=== PATIENT | female | born 1995 | race Caucasian/White ===

== ENCOUNTER 2019-06-26 23:02 | Emergency (ER) | payer BC ==
[2019-06-26] MEDS ORDERED: IBUPROFEN 600 MG TAB PO STA (23:40)
--- NOTE | 2019-06-26 23:55 | ED ---
General Adult HPI - General Chief complaint: Extremity Injury, Lower Stated complaint: Horse stepped on R Foot Time Seen by Provider: 06/26/19 23:37 Source: patient, RN notes reviewed Mode of arrival: ambulatory Limitations: no limitations - History of Present Illness Initial comments: 23-year-old female presents to the emergency department for a chief complaint of right foot pain. Patient states that her 8-week-old horse stepped on her right forefoot. States that she has pain in the front the foot. States that she can walk on her foot but only using her heel. States that it did start bruising as well. Denies any other injuries.Patient has no other complaints at this time including shortness of breath, chest pain, abdominal pain, nausea or vomiting, headache, or visual changes. - Related Data Home Medications Medication Instructions Recorded Confirmed Dextroamphetamine/Amphetamine 06/04/15 06/04/15 [Adderall] Montelukast Chew [Singulair] 06/04/15 06/04/15 Previous Rx's Medication Instructions Recorded SILVER sulfADIAZINE CREAM 1 applic TOPICAL BID #100 gram 06/04/15 [Silvadene Cream] methylPREDNISolone [Medrol] 4 mg PO DIRECTED #1 tab.ds.pk 06/04/15 Allergies Allergy/AdvReac Type Severity Reaction Status Date / Time magnesium sulfate Allergy Rash/Hives Verified 06/26/19 23:25 [From Suprep] potassium sulfate Allergy Rash/Hives Verified 06/26/19 23:25 [From Suprep] sodium sulfate [From Suprep] Allergy Rash/Hives Verified 06/26/19 23:25 Review of Systems ROS Statement: Those systems with pertinent positive or pertinent negative responses have been documented in the HPI. ROS Other: All systems not noted in ROS Statement are negative. Past Medical History Past Medical History: No Reported History History of Any Multi-Drug Resistant Organisms: None Reported Past Surgical History: No Surgical Hx Reported Past Psychological History: No Psychological Hx Reported Smoking Status: Never smoker Past Alcohol Use History: None Reported Past Drug Use History: None Reported General Exam Limitations: no limitations General appearance: alert, in no apparent distress Head exam: Present: atraumatic, normocephalic, normal inspection Eye exam: Present: normal appearance, PERRL, EOMI. Absent: scleral icterus, conjunctival injection, periorbital swelling ENT exam: Present: normal exam, mucous membranes moist Neck exam: Present: normal inspection, full ROM. Absent: tenderness, meningismus, lymphadenopathy Respiratory exam: Present: normal lung sounds bilaterally. Absent: respiratory distress, wheezes, rales, rhonchi, stridor Cardiovascular Exam: Present: regular rate, normal rhythm, normal heart sounds. Absent: systolic murmur, diastolic murmur, rubs, gallop, clicks Extremities exam: Present: full ROM (Full range motion of all digits in the right foot although patient does have pain at times with moving the digits. Full range motion of the right ankle.), tenderness (Tenderness noted to right forefoot over the second and fourth metatarsals.), normal capillary refill (Capillary refill less than 2 seconds, DP pulse 2+ in the right lower extremity.), other (Patient does have some mild ecchymosis noted to the forefoot about 3 cm x 3 cm.). Absent: normal inspection, pedal edema, joint swelling, calf tenderness Course Vital Signs 06/26/19 23:20 Pulse Rate 79 Respiratory 18 Rate Blood Pressure 120/80 O2 Sat by Pulse 96 Oximetry Procedures - Orthopedic Splinting/Casting Injury #1 Side: right Lower Extremity Injury Location: short leg Lower Extremity Immobilizer: posterior splint Medical Decision Making - Medical Decision Making 23-year-old female presents to the emergency department for right foot pain. Patient's were stepped on this. On exam she has some mild contusion noted over the second third and fourth dorsal metatarsals. Compartments are soft. She unable to bear weight on the forefoot. X-rays are negative for acute fracture. However given the patient cannot bear weight she was splinted in a posterior short leg splint. Neurovascular status intact after splint applied. She will follow up with orthopedics. She already has crutches at bedside. She'll return if she has any worsening symptoms. Disposition Clinical Impression: Contusion of foot Disposition: HOME SELF-CARE Condition: Good Instructions (If sedation given, give patient instructions): Foot Contusion (ED) Additional Instructions: Please take Motrin and Tylenol for pain. Please keep splint dry. Follow-up with orthopedics in one to 2 days. Return to the emergency department if you have any worsening symptoms. Is patient prescribed a controlled substance at d/c from ED?: No Referrals: Jennifer Putnam MD [Primary Care Provider] - 1-2 days Makim,Vikas, MD [STAFF PHYSICIAN] - 1-2 days Time of Disposition: 00:12
--- NOTE | 2019-06-27 00:17 | XR ---
EXAM: XR Right Foot Complete, 3 or More Views CLINICAL HISTORY: Pain TECHNIQUE: Frontal, lateral and oblique views of the right foot. COMPARISON: No relevant prior studies available. FINDINGS: Bones/joints: Unremarkable. No acute fracture. No dislocation. Soft tissues: Unremarkable. No radiopaque foreign body. IMPRESSION: Normal right foot x-rays.
[2019-06-27 00:52] VITALS: BP 116/78; PULSE 76; RESP 16; TEMP 98
== END 2019-06-27 00:40 | disposition home or self-care (01) ==
LOC: EC 23:02
DX: S90.31XA Contusion of right foot, initial encounter (principal); Z79.891 Long term (current) use of opiate analgesic; Z88.8 Allergy status to other drugs, medicaments and biological substances; W55.19XA Other contact with horse, initial encounter; Y92.009 Unspecified place in unspecified non-institutional (private) residence as the place of occurrence of the external cause
CPT/HCPCS: 29515; 99283

== ENCOUNTER 2023-06-15 14:18 | Inpatient (IN) | payer OTHER ==
--- NOTE | 2023-06-15 15:19 | ED ---
Lower Extremity Injury HPI - General Source: patient, RN notes reviewed Mode of arrival: wheelchair Limitations: no limitations <Veronica Campbell - Last Filed: 06/15/23 15:18> <Hayley Dunbar - Last Filed: 06/15/23 18:22> - General Stated Complaint: right leg injury Time Seen by Provider: 06/15/23 15:18 - History of Present Illness Initial Comments: Patient is a 27-year-old female who presents for right leg injury. (Veronica Campbell) Quick note reviewed: This is a pleasant 7-year-old female with no s ignificant past medical history presents the emergency department with a chief complaint of right ankle pain. Patient reports that she was at work when she lost her footing on another coworker's legs. She denies hitting her head, loss of consciousness, anticoagulant use. She cannot take any pain medications prior to arrival. Denies numbness, tingling, weakness to the extremity. Denies pain proximal to ankle (Hayley Dunbar) - Related Data Home Medications Medication Instructions Recorded Confirmed Albuterol Sulfate [Albuterol 1 - 2 puff PO RT-Q6H PRN 06/15/23 06/15/23 Sulfate Hfa] Biotin [Ziuf-Dijc-Novfx] 10,000 mcg PO DAILY 06/15/23 06/15/23 Cetirizine HCl [Zyrtec] 10 mg PO DAILY 06/15/23 06/15/23 Cholecalciferol [Vitamin D3 (125 250 mcg PO DAILY 06/15/23 06/15/23 Mcg = 5000 Iu)] Fluticasone Propion/Salmeterol 1 puff INHALATION RT-BID 06/15/23 06/15/23 [Advair 100-50 Diskus] Lisdexamfetamine Dimesylate 30 mg PO DAILY PRN 06/15/23 06/15/23 [Vyvanse] Magnesium Oxide [Magnesium] 500 mg PO DAILY 06/15/23 06/15/23 Montelukast [Singulair] 10 mg PO DAILY 06/15/23 06/15/23 Fortunato Happy Yahaira-Celis 1 cap PO DAILY 06/15/23 06/15/23 Probiotic/Prebiotic 1 cap PO DAILY 06/15/23 06/15/23 Propranolol [Inderal] 10 mg PO DIRECTED PRN 06/15/23 06/15/23 levonorgestreL [Kyleena (IUD)] 1 implant VAGINAL [id number] 06/15/23 06/15/23 Allergies Allergy/AdvReac Type Severity Reaction Status Date / Time bee venom protein (honey bee) Allergy Swelling Verified 06/15/23 17:30 magnesium sulfate Allergy Rash/Hives Verified 06/15/23 17:30 [From Suprep] potassium sulfate Allergy Rash/Hives Verified 06/15/23 17:30 [From Suprep] sodium sulfate [From Suprep] Allergy Rash/Hives Verified 06/15/23 17:30 soy Allergy Swelling Verified 06/15/23 17:30 Review of Systems ROS Other: All systems not noted in ROS Statement are negative. <Veronica Campbell - Last Filed: 06/15/23 15:18> ROS Other: All systems not noted in ROS Statement are negative. <Hayley Dunbar - Last Filed: 06/15/23 18:22> ROS Statement: Those systems with pertinent positive or pertinent negative responses have been documented in the HPI. Past Medical History Past Medical History: No Reported History Additional Past Medical History / Comment(s): bilateral broken arms History of Any Multi-Drug Resistant Organisms: None Reported Past Surgical History: No Surgical Hx Reported Additional Past Surgical History / Comment(s): wisdom teeth removal Past Psychological History: No Psychological Hx Reported, ADD/ADHD, Anxiety Smoking Status: Never smoker Past Alcohol Use History: Occasional <Veronica Campbell - Last Filed: 06/15/23 15:18> General Exam Limitations: no limitations <Veronica Campbell - Last Filed: 06/15/23 15:18> <Hayley Dunbar - Last Filed: 06/15/23 18:22> - General Exam Comments Initial Comments: Visual Physical Exam Vital signs reviewed General: Well-appearing, nontoxic, no acute distress. Head: Normocephalic, atraumatic Eyes: PERRLA, EOMI ENT: Airway patent Chest: Nonlabored breathing Skin: No visual rash, normal skin tone Neuro: Alert and oriented 3 Musculoskeletal: No gross abnormalities (Veronica Campbell) General: Alert, in no acute distress Head: atraumatic normocephalic. Eyes PERRL, EOMI intact, mucous membranes moist Respiratory: Lungs clear to auscultation bilaterally Cardiovascular: Tachycardic Abdominal: Soft without guarding or rebound Extremities: Normal inspection with full range of motion and normal capillary refill, right ankle with deformity and generalized swelling and marked tenderness to palpation. Limited range of motion secondary to pain 2+ DP/PT pulses. Distal neurovascularly intact Neuroogic: alert and oriented 3, CN II-XII intact, able to ambulate with steady gait Skin: warm dry and intact with normal color (Hayley Dunbar) Course <Hayley Dunbar - Last Filed: 06/15/23 18:22> Vital Signs 06/15/23 06/15/23 06/15/23 15:11 16:20 16:50 Temperature 98.6 F 98.4 F Pulse Rate 103 H 105 H 102 H Respiratory 18 20 18 Rate Blood Pressure 135/90 120/79 118/76 O2 Sat by Pulse 100 100 99 Oximetry 06/15/23 18:12 Temperature 98.8 F Pulse Rate 80 Respiratory 17 Rate Blood Pressure 126/74 O2 Sat by Pulse 100 Oximetry - Reevaluation(s) Reevaluation #1: 06/15/23 16:[address] Gonzalez who agrees and accepts the patient for admission (Hayley Dunbar) Medical Decision Making <Veronica Campbell - Last Filed: 06/15/23 15:18> <Hayley Dunbar - Last Filed: 06/15/23 18:22> - Medical Decision Making I performed the QuickNote portion of this chart - Veronica Campbell PA-C (Veronica Campbell) Was pt. sent in by a medical professional or institution (PAOLA Moreno, MARKETING INTELLIGENCE MANAGER, urgent care, hospital, or alf...) When possible be specific @ -[No] Did you speak to anyone other than the patient for history (EMS, parent, family, police, friend...)? What history was obtained from this source @ -[No] Did you review nursing and triage notes (agree or disagree)? Why? @ -[I reviewed and agree with nursing and triage notes] Were old charts reviewed (outside hosp., previous admission, EMS record, old EKG, old radiological studies, urgent care reports/EKG's, alf records)? Report findings @ -[No old charts were reviewed] Differential Diagnosis (chest pain, altered mental status, abdominal pain women, abdominal pain men, vaginal bleeding, weakness, fever, dyspnea, syncope, headache, dizziness, GI bleed, back pain, seizure, CVA, palpatations, mental health, musculoskeletal)? @ -[not applicable] EKG interpreted by me (3pts min.). @ -[As above] X-rays interpreted by me (1pt min.). @ -Distal tibia and fibula fracture CT interpreted by me (1pt min.). @ -[None done] U/S interpreted by me (1pt. min.). @ -[None done] What testing was considered but not performed or refused? (CT, X-rays, U/S, labs)? Why? @ -[None] What meds were considered but not given or refused? Why? @ -[None] Did you discuss the management of the patient with other professionals (professionals i.e. , PA, MARKETING INTELLIGENCE MANAGER, lab, RT, psych nurse, social work faculty member, security project manager, teacher, security officer, field nurse case manager)? Give summary @ -[Case discussed with Rocio Nuno sap functional analyst who agrees and accepts the patient for admission. Was smoking cessation discussed for >3mins.? @ -[No] Was critical care preformed (if so, how long)? @ -[No] Were there social determinants of health that impacted care today? How? ( Homelessness, low income, unemployed, alcoholism, drug addiction, transportation, low edu. Level, literacy, decrease access to med. care, longterm, rehab)? @ -[No] Was there de-escalation of care discussed even if they declined (Discuss DNR or withdrawal of care, Hospice)? DNR status @ -[No] What co-morbidities impacted this encounter? (DM, HTN, Smoking, COPD, CAD, Cancer, CVA, ARF, Chemo, Hep., AIDS, mental health diagnosis, sleep apnea, morbid obesity)? @ -[None] Was patient admitted / discharged? Hospital course, mention meds given and route, prescriptions, significant lab abnormalities, going to OR and other pertinent info. @ -Admission. This is a pleasant 27-year-old female who presents the emergency department with right ankle pain. Patient had a thorough history and physical exam performed on the ED. Physical exam reveals deformity to right ankle with edema, ecchymosis and marked tenderness to palpation. 2+ DP/PT pulses. Patient remains distally neurovascularly intact. Patient had x-rays performed which revealed acute fractures of the right fibula diaphysis with a butterfly fragment there is mild displacement of the fracture. Spiral fracture of the distal right tibia. Soft tissue swelling throughout the foot. I discussed the results in detail with the patient verbalized understanding all questions were addressed. She is agreeable with the plan for admission. Case is discussed with Dr. Gonzalez who recommends admission with recommend nothing by mouth after midnight and surgery tomorrow. Patient was given morphine, fluids, Dilaudid with mild symptomatically relief in the ED. She'll be placed in posterior mold. He is discussed with Dr. Thibodeaux, [facility] who agrees with plan of care Undiagnosed new problem with uncertain prognosis? @ -[No] Drug Therapy requiring intensive monitoring for toxicity (Heparin, Nitro, Insulin, Cardizem)? @ -[No] Were any procedures done? @ -[No] Diagnosis/symptom? @ -Distal Tibia Fracture Distal Fibula Fracture Acute, or Chronic, or Acute on Chronic? @ -Acute Uncomplicated (without systemic symptoms) or Complicated (systemic symptoms)? @ -Complicated Side effects of treatment? @ -[No] Exacerbation, Progression, or Severe Exacerbation? @ -[No] Poses a threat to life or bodily function? How? (Chest pain, [place], [place], pneumonia, PE, COPD, DKA, ARF, appy, cholecystitis, CVA, Diverticulitis, Homicidal, Suicidal, threat to staff... and all critical care pts) @ Moderate likelihood (Hayley Dunbar) Disposition <Veronica Campbell - Last Filed: 06/15/23 15:18> Time of Disposition: 16:51 <Hayley Dunbar - Last Filed: 06/15/23 18:22> Clinical Impression: Tibia/fibula fracture Disposition: ADMITTED IP TO THIS HOSP Condition: Serious
[2023-06-15] MEDS ORDERED: MORPHINE SULFATE 4 MG/ML SYRINGE IVP STA (16:09)
--- NOTE | 2023-06-15 16:21 | XR ---
EXAMINATION TYPE: XR ankle complete RT DATE OF EXAM: 06/15/2023 3:57 PM INDICATION: Patient age:Female; 27 years old; Reason for study: ankle pain; COMPARISON: None TECHNIQUE: The right ankle is imaged in frontal, lateral and oblique projections. FINDINGS/IMPRESSION: : Acute fracture of the right fibula diaphysis with butterfly fragment. Mild displacement fracture frag ments. Spiral fracture of the distal right tibia. There is mild displacement. Soft tissue swelling th roughout the foot.
[2023-06-15] MEDS ORDERED: HYDROmorphone 1 MG/ML 1 ML SYRINGE IVP STA (16:48)
[2023-06-15] MEDS ORDERED: ONDANSETRON 4 MG/2 ML VIAL IVP STA (16:48)
[2023-06-15] MEDS ORDERED: NALOXONE 0.4 MG/ML 1 ML VIAL IV PRN (16:49)
--- NOTE | 2023-06-15 16:56 | XR ---
EXAMINATION TYPE: XR knee limited RT DATE OF EXAM: 06/15/2023 COMPARISON: NONE HISTORY: 27-year-old female with fall and pain TECHNIQUE: 2 views FINDINGS: Mild anterior infrapatellar soft tissue swelling. No sizable joint effusion. Extensor mechanism appea rs intact. No acute fracture, subluxation, or dislocation seen. Partially visualized comminuted fract ure mid to distal third fibular shaft. IMPRESSION: Knee without acute osseous abnormality seen. There is some mild anterior infrapatellar soft tissue sw elling. Partially visualized comminuted fracture of the mid to distal third fibular shaft.
[2023-06-15] MEDS: HYDROmorphone 0.5 MG/0.5 ML SYRINGE IVP PRN ×3 (19:00→23:49)
--- NOTE | 2023-06-15 19:14 | CT ---
EXAMINATION TYPE: CT ankle RT wo con DATE OF EXAM: 06/15/2023 COMPARISON: Radiograph same day HISTORY: 27-year-old female with injury and pain, Assess distal tib/fib fx. TECHNIQUE: Contiguous axial scanning of the right mid leg and ankle without IV contrast. Coronal and sagittal reconstructions performed. Brain reconstructions generated on a dedicated independent workst [employer]. CT DLP: 715.8 mGycm Automated exposure control for dose reduction was used. FINDINGS: There is a comminuted oblique fracture of the distal third tibial shaft with slight posterior angulat ion and approximately 9 mm of lateral displacement. Additional comminuted fracture distal third fibular shaft with anterior displacement of 8 mm. Extensive associated soft tissue swelling and local hemorrhagic material at the fracture site. The ankle articulation appears grossly intact. IMPRESSION: 1. Comminuted oblique fracture of the distal third tibial shaft with slight posterior angulation and approximately 9 mm of lateral displacement. 2. Comminuted fracture distal third fibular shaft with anterior displacement of the millimeters. 3. Prominent associated soft tissue swelling.
[2023-06-15] MEDS ORDERED: PROPRANOLOL 10 MG TAB PO PRN (19:36)
[2023-06-15] MEDS ORDERED: NON FORMULARY DRUG (Lisdexamfetamine Dimesylate [Vyvanse] 30 MG Capsule) PO PRN (19:36)
[2023-06-15] MEDS ORDERED: ALBUTEROL NEBULIZED 2.5 MG/3 ML INHALATION PRN (19:36)
[2023-06-15 20:36] LABS: Basophils # (A) 0.1 k/uL (0-0.2); Basophils % (A) 1 %; Eosinophils % (A) 0 %; HGB 13.4 gm/dL (11.4-16.0); Lymphocytes # (A) 2.4 k/uL (1.0-4.8); Lymphocytes % (A) 17 %; MCH 30.6 pg (25.0-35.0); MCHC 32.6 g/dL (31.0-37.0); MCV 93.9 fL (80.0-100.0); Mean Platelet Volume 7.3; Monocytes # (A) 0.6 k/uL (0-1.0); Monocytes % (A) 4 %; Neutrophils # (A) 11.2 k/uL (1.3-7.7); Neutrophils % (A) 77 %; Platelet Count 366 k/uL (150-450); RBC 4.36 m/uL (3.80-5.40); RDW 12.2 % (11.5-15.5); WBC 14.4 k/uL (3.8-10.6)
[2023-06-15 20:42] LABS: INR 0.9 (<1.2)
[2023-06-15 20:45] LABS: ALT 20 U/L (4-34); AST 25 U/L (14-36); African American GFR (CKD) >90 (>60 ml/min/1.73 sqM); Albumin 4.2 g/dL (3.5-5.0); Alkaline Phosphatase 93 U/L (38-126); Anion Gap 9 mmol/L; Blood Urea Nitrogen 10 mg/dL (7-17); Calcium 9.1 mg/dL (8.4-10.2); Carbon Dioxide 24 mmol/L (22-30); Chloride 106 mmol/L (98-107); Glucose 112 mg/dL (74-99); Non-African American GFR(CKD) >90 (>60 ml/min/1.73 sqM); Potassium 4.1 mmol/L (3.5-5.1); Sodium 139 mmol/L (137-145); Total Bilirubin 0.6 mg/dL (0.2-1.3); Total Protein 7.4 g/dL (6.3-8.2)
[2023-06-15] MEDS: SODIUM CHLORIDE 0.9% 1,000 ML IV SCH (21:14)
[2023-06-15] MEDS: SYMBICORT 80-4.5 MCG INHALER INHALATION SCH (21:38)
[2023-06-16] MEDS: HYDROmorphone 0.5 MG/0.5 ML SYRINGE IVP PRN ×6 (03:53→23:44)
[2023-06-16] MEDS: SODIUM CHLORIDE 0.9% 1,000 ML IV SCH ×3 (05:05→19:54)
[2023-06-16] MEDS: SYMBICORT 80-4.5 MCG INHALER INHALATION SCH ×2 (08:28→20:43)
[2023-06-16] MEDS: CHOLECALCIFEROL 125 MCG (5000 IU) TABLET PO SCH (08:36)
[2023-06-16] MEDS: LORATADINE 10 MG TAB PO SCH (08:36)
[2023-06-16] MEDS: MAGNESIUM OXIDE 400 MG TAB PO SCH (08:36)
[2023-06-16] MEDS: MONTELUKAST 10 MG TAB PO SCH (08:36)
--- NOTE | 2023-06-16 11:26 | P.HPOR ---
History of Present Illness H&P Date: 06/16/23 Chief Complaint: Right ankle injury The patient is a previously healthy 27-year-old female who presented to the emergency department yesterday with right ankle pain. She states that she lost her footing and tripped over another coworker's legs at work. She had immediate pain in her right ankle and was unable to bear weight. She denies any other injuries. X-rays in the ER revealed a displaced tibia and fibula fractures. Orthopedics was called for evaluation and treatment. The patient denies numbness and tingling in the right leg. She states the pain medication is moderately controlled her pain at this time. Review of Systems Constitutional: Denies chills, Denies fatigue, Denies fever Cardiovascular: Denies chest pain, Denies shortness of breath Respiratory: Denies cough Gastrointestinal: Denies diarrhea, Denies nausea, Denies vomiting Musculoskeletal: right: ankle pain, ankle stiffness, ankle swelling Past Medical History Past Medical History: No Reported History Additional Past Medical History / Comment(s): bilateral broken arms History of Any Multi-Drug Resistant Organisms: None Reported Past Surgical History: No Surgical Hx Reported Additional Past Surgical History / Comment(s): wisdom teeth removal Past Psychological History: No Psychological Hx Reported, ADD/ADHD, Anxiety Smoking Status: Never smoker Past Alcohol Use History: Occasional Past Drug Use History: None Reported Medications and Allergies Home Medications Medication Instructions Recorded Confirmed Type Albuterol Sulfate [Albuterol 1 - 2 puff PO RT-Q6H PRN 06/15/23 06/15/23 History Sulfate Hfa] Biotin [Bcxh-Eaxl-Aaodx] 10,000 mcg PO DAILY 06/15/23 06/15/23 History Cetirizine HCl [Zyrtec] 10 mg PO DAILY 06/15/23 06/15/23 History Cholecalciferol [Vitamin D3 (125 250 mcg PO DAILY 06/15/23 06/15/23 History Mcg = 5000 Iu)] Fluticasone Propion/Salmeterol 1 puff INHALATION RT-BID 06/15/23 06/15/23 History [Advair 100-50 Diskus] Lisdexamfetamine Dimesylate 30 mg PO DAILY PRN 06/15/23 06/15/23 History [Vyvanse] Magnesium Oxide [Magnesium] 500 mg PO DAILY 06/15/23 06/15/23 History Montelukast [Singulair] 10 mg PO DAILY 06/15/23 06/15/23 History Fortunato Happy Yahaira-Celis 1 cap PO DAILY 06/15/23 06/15/23 History Probiotic/Prebiotic 1 cap PO DAILY 06/15/23 06/15/23 History Propranolol [Inderal] 10 - 20 mg PO DIRECTED PRN 06/15/23 06/16/23 History levonorgestreL [Kyleena (IUD)] 1 implant VAGINAL [id number] 06/15/23 06/15/23 History Allergies Allergy/AdvReac Type Severity Reaction Status Date / Time bee venom protein (honey bee) Allergy Swelling Verified 06/15/23 17:30 magnesium sulfate Allergy Rash/Hives Verified 06/15/23 17:30 [From Suprep] potassium sulfate Allergy Rash/Hives Verified 06/15/23 17:30 [From Suprep] sodium sulfate [From Suprep] Allergy Rash/Hives Verified 06/15/23 17:30 soy Allergy Swelling Verified 06/15/23 17:30 Physical Examination The patient is a 27-year-old female in no acute distress. She is alert and oriented 3. Exam of the right extremity reveals swelling and ecchymosis to above the ankle. She is able to wiggle her toes without difficulty. Range of motion of the ankle was not tested at this time. No pain to the knee or proximal tib-fib. Neurological and circulatory status is intact. Results X-rays of the right ankle reveals a displaced distal tibia fracture and fibular shaft fracture. CT of the ankle reveals no fracture extension into the ankle joint. - Labs Labs: Abnormal Lab Results - Last 24 Hours (Table) 06/15/23 06/15/23 Range/Units 20:07 20:07 WBC 14.4 H (3.8-10.6) k/uL Neutrophils # 11.2 H (1.3-7.7) k/uL Glucose 112 H (74-99) mg/dL H & H 06/15/23 Range/Units 20:07 Hgb 13.4 (11.4-16.0) gm/dL Hct 41.0 (34.0-46.0) % Coagulation 06/15/23 Range/Units 20:07 INR 0.9 (<1.2) Result Diagrams: 06/15/23 20:07 06/15/23 20:07 Assessment and Plan (1) Fall Current Visit: Yes Status: Acute Code(s): W19.XXXA - UNSPECIFIED FALL, INITIAL ENCOUNTER SNOMED Code(s): 6230141 (2) Tibia/fibula fracture Current Visit: Yes Status: Acute Code(s): S82.209A - UNSP FRACTURE OF SHAFT OF UNSP TIBIA, INIT FOR CLOS FX; S82.409A - UNSP FRACTURE OF SHAFT OF UNSP FIBULA, INIT FOR CLOS FX SNOMED Code(s): 307665810 Plan: The clinical and x-ray findings were discussed with the patient and family at the bedside. The case was discussed with Dr. Jitendra Allred. We are recommending surgical fixation of the tibia fracture with a intramedullary nail, which will take place this afternoon. She will remain NPO and on bedrest. Surgical risks were discussed at length with the patient. Possible risks and complications including but not limited to risk of bleeding, infection, nonunion, DVT, stroke, heart attack, and were discussed. Further recommendations will follow after surgery. The patient will be nonweightbearing.
[2023-06-16] MEDS ORDERED: IV FLUID CONTINUATION 1,000 ML IV ONE (13:36)
[2023-06-16] MEDS ORDERED: ONDANSETRON 4 MG/2 ML VIAL ONE (13:47)
[2023-06-16] MEDS ORDERED: SCOPOLAMINE 1 MG/72 HR PATCH TRANSDERM ONE (13:50)
[2023-06-16] MEDS ORDERED: ONDANSETRON 4 MG/2 ML VIAL IVP ONE (13:51)
[2023-06-16] MEDS ORDERED: DEXAMETHASONE SOD PHOSPHATE 4 MG/ML 1 ML VIAL IVP ONE (13:52)
[2023-06-16] MEDS ORDERED: HYDROcodone/APAP 7.5-325MG 1 EACH TAB PO PRN (14:55)
[2023-06-16] MEDS ORDERED: ONDANSETRON 4 MG/2 ML VIAL IVP PRN (14:59)
[2023-06-16] MEDS ORDERED: HYDROmorphone 0.5 MG/0.5 ML SYRINGE IVP PRN (14:59)
[2023-06-16] MEDS ORDERED: NALOXONE 0.4 MG/ML 1 ML VIAL IV PRN (14:59)
[2023-06-16] MEDS ORDERED: MAGNESIUM HYDROXIDE 2,400 MG/30 ML CUP PO PRN (14:59)
[2023-06-16] MEDS ORDERED: MIDAZOLAM 2 MG/2 ML VIAL ONE (15:09)
[2023-06-16] MEDS ORDERED: fentaNYL (PF) 50 MCG/ML 2 ML AMP ONE (15:09)
[2023-06-16] MEDS ORDERED: LIDOCAINE 2% INJ 20 MG/ML (2 ML VIAL) ONE (15:09)
[2023-06-16] MEDS ORDERED: PROPOFOL 10 MG/ML 20 ML VIAL IV ONE (15:09)
[2023-06-16] MEDS ORDERED: ceFAZolin 1,000 MG in SODIUM CHLORIDE 0.9% 1,000 ML IRRIGATION ONE (15:41)
[2023-06-16] MEDS ORDERED: CLINDAMYCIN 900 MG in DEXTROSE 5% IN WATER 50 ML IVPB SCH ×2 (16:00)
[2023-06-16] MEDS ORDERED: LACTATED RINGERS 1,000 ML IV ONE (16:05)
--- NOTE | 2023-06-16 17:05 | P.OP ---
Date of Procedure: 06/16/23 Preoperative Diagnosis: Closed fracture right mid shaft tibia and fibula Postoperative Diagnosis: Closed fracture right mid shaft tibia and fibula Procedure(s) Performed: Close reduction and intramedullary nailing right tibia Implants: [employer] Tibial nail 8.5mm x 30 cm [employer] L-P screw, 45 mm, 32.5 mm, 27.5 mm, 37.5 mm Anesthesia: AUDREYA Surgeon: Jitendra Allred Location Worker #1: Oksana Pinzon Estimated Blood Loss (ml): 100 Pathology: none sent Condition: stable Disposition: PACU Indications for Procedure: This is a 27-year-old female that sustained an injury at work when she tripped over a cord first leg. She presented to the emergency room with a midshaft tibia and fibula fracture which is closed. After discussing the surgical nonsurgical treatment options with her at length, I recommended a closed intramedullary nailing of her right tibia and informed consent was obtained. Operative Findings: The operative findings are consistent with a closed midshaft right tibia and fibula fracture Description of Procedure: The patient was seen and evaluated in the preoperative area. The consent was reviewed and the operative site was marked with a skin marker. Patient was then brought to the operating room and given 2 g of Ancef by anesthesia. A general anesthetic was then performed by the anesthesia department. Tourniquet was then placed on the right upper thigh and the right lower extremities and prepped and draped in usual sterile fashion. A universal timeout was then performed which confirmed the patient's name, lynnette gical site, ALLERGIES, and consent. On inspection of the patient's skin prior to beginning the procedure, there is no evidence of any open areas. The procedure began by using fluoroscopy to perform a close reduction of the tibia fracture. This reduction was then held percutaneously with pointed reduction clamps. Next the starting point of the arthur was located just medial to the tibial tubercle. A skin incision was made and carried down to the patellar tendon. The patellar tendon was then opened medially to expose the insertion point of the arthur. Knee joint was not entered. A curved awl was then used to create the starting point of the arthur and this was confirmed with fluoroscopy. A ball-tipped guidewire was then inserted in the insertion site and passed distally past the fracture site into the distal fragment. This was confirmed with both AP and lateral fluoroscopic x-rays. Next, sequential reaming of the tibial canal was then performed with flexible reamers to 1-1/2 mm over the size of the arthur. After reaming was finished, the guidewire was then measured to pick the correct length for the arthur. The arthur was then inserted over the guidewire to the appropriate depth, and the guidewire was then removed. The fracture as well as the placement of the arthur was then confirmed with both AP and lateral fluoroscopic views. Next, 2 proximal locking screws then placed using the targeting guide. Next, 2 distal locking screws were then placed using a freehand technique with fluoroscopy. After all the screws been placed, and the targeting guide removed, final fluoroscopic x-rays confirmed reduction of the fracture as well as excellent placement of the arthur and screws. The wounds were then irrigated with antibiotic solution. Patellar tendon was closed with #1 Vicryl, followed by 2-0 Vicryl and humble for the skin. The rest of the small stab incisions for the screws were closed with 2-0 Vicryl and humble for the skin. Sterile dressings were then applied and a well-padded and molded posterior splint was placed. The patient was then transferred to the recovery room in stable condition. The medical laboratory assistant PAOLA Stoll was required due the complexity of the surgery and the need for skilled surgical physician assistant.
[2023-06-16] MEDS ORDERED: MEPERIDINE 50 MG/ML SYRINGE IVP ONE (17:20)
--- NOTE | 2023-06-16 17:40 | P.CONS ---
History of Present Illness - Reason for Consult Consult date: 06/16/23 - History of Present Illness Ivana Betancur, is a 27 -year-old female who presented to [facility] emergency room with a chief complaint of right ankle pain after sustaining a fall. She was evaluated in the emergency room vital examination on presentation revealed a temperature of 98.6 pulse 103 respiration 18 blood pressure 135/90 pulse ox 100% on room air Laboratory data revealed a white blood count of 14.4 hemoglobin 13.4 platelet count 366 Past medical history significant for history of asthma, history of ALLERGIC rhinitis, history of ADHD On review of systems patient is alert and oriented 3 in no apparent distress she is complaining of right ankle pain otherwise she denies any complaints there is no fever or chills no headache or dizziness no chest pain no shortness of breath no cough no nausea or vomiting no abdominal pain no diarrhea and no urinary symptoms. Past Medical History Past Medical History: No Reported History Additional Past Medical History / Comment(s): bilateral broken arms History of Any Multi-Drug Resistant Organisms: None Reported Past Surgical History: No Surgical Hx Reported Additional Past Surgical History / Comment(s): wisdom teeth removal Past Psychological History: No Psychological Hx Reported, ADD/ADHD, Anxiety Smoking Status: Never smoker Past Alcohol Use History: Occasional Past Drug Use History: None Reported Medications and Allergies Home Medications Medication Instructions Recorded Confirmed Type Albuterol Sulfate [Albuterol 1 - 2 puff PO RT-Q6H PRN 06/15/23 06/15/23 History Sulfate Hfa] Biotin [Wpyi-Renw-Somlp] 10,000 mcg PO DAILY 06/15/23 06/15/23 History Cetirizine HCl [Zyrtec] 10 mg PO DAILY 06/15/23 06/15/23 History Cholecalciferol [Vitamin D3 (125 250 mcg PO DAILY 06/15/23 06/15/23 History Mcg = 5000 Iu)] Fluticasone Propion/Salmeterol 1 puff INHALATION RT-BID 06/15/23 06/15/23 History [Advair 100-50 Diskus] Lisdexamfetamine Dimesylate 30 mg PO DAILY PRN 06/15/23 06/15/23 History [Vyvanse] Magnesium Oxide [Magnesium] 500 mg PO DAILY 06/15/23 06/15/23 History Montelukast [Singulair] 10 mg PO DAILY 06/15/23 06/15/23 History Fortunato Happy Yahaira-Celis 1 cap PO DAILY 06/15/23 06/15/23 History Probiotic/Prebiotic 1 cap PO DAILY 06/15/23 06/15/23 History Propranolol [Inderal] 10 - 20 mg PO DIRECTED PRN 06/15/23 06/16/23 History levonorgestreL [Kyleena (IUD)] 1 implant VAGINAL [id number] 06/15/23 06/15/23 History Allergies Allergy/AdvReac Type Severity Reaction Status Date / Time bee venom protein (honey bee) Allergy Swelling Verified 06/16/23 13:37 cefixime [From Suprax] Allergy Rash/Hives Verified 06/16/23 13:49 soy Allergy Swelling Verified 06/16/23 13:37 cephalexin [From Keflex] AdvReac Nausea & Verified 06/16/23 13:37 Vomiting Physical Exam Vitals: Vital Signs Temp Pulse Pulse Resp BP BP Pulse Ox 06/16/23 13:43 98.5 F 95 16 119/73 98 06/16/23 07:16 98.9 F 78 16 93/56 93 L 06/16/23 06:59 98.4 F 78 16 93/56 93 L 06/16/23 00:58 98.5 F 79 100/65 97 06/15/23 19:52 98.1 F 72 18 109/71 100 06/15/23 18:12 98.8 F 80 17 126/74 100 06/15/23 16:50 102 H 18 118/76 99 06/15/23 16:20 98.4 F 105 H 20 120/79 100 06/15/23 15:11 98.6 F 103 H 18 135/90 100 Intake and Output 06/15/23 06/16/23 06/16/23 22:59 06:59 14:59 Intake Total 600 Output Total 550 1000 Balance -550 -400 Intake: Intake, IV Titration 600 Amount Sodium Chloride 0.9% 1, 600 000 ml @ 75 mls/hr IV . [id number] [facility] Rx#:[id number] Output: Urine 550 1000 Other: Voiding Method External Catheter Weight 77.111 kg In general patient is alert and oriented x 3 in no distress HEENT head normocephalic and atraumatic Neck is supple no JVD no goiter no lymphadenopathy no carotid bruit Chest examination is clear to auscultation no crackles no wheezing Cardiac exam reveals regular heart sounds S1 and S2 no gallops no murmurs Abdomen is soft nontender no organomegaly with normal bowel sounds Extremity exam reveals no edema no cyanosis or clubbing Neurological examination reveals no gross focal deficits Results CBC & Chem 7: 06/15/23 20:07 06/15/23 20:07 Labs: Abnormal Lab Results - Last 24 Hours (Table) 06/15/23 06/15/23 Range/Units 20:07 20:07 WBC 14.4 H (3.8-10.6) k/uL Neutrophils # 11.2 H (1.3-7.7) k/uL Glucose 112 H (74-99) mg/dL Assessment and Plan Assessment: Acute fracture of the right fibula diaphysis, with mild displacement, and acute spiral fracture of the distal right tibia with mild displacement. Underlying history of asthma stable at this time Underlying history of ALLERGIC rhinitis Underlying history of ADHD At this time patient was seen and examined Home medications reviewed and reordered Patient was seen by orthopedic surgery and plan is for surgery today Will continue to follow during this admission for medical management Plan: Fall with right ankle fracture
--- NOTE | 2023-06-16 17:45 | XR ---
EXAMINATION TYPE: XR tibia fibula RT DATE OF EXAM: 06/16/2023 5:36 PM INDICATION: Patient age:Female; 27 years old; Reason for study: post op; [facility]. COMPARISON: 06/15/2023. TECHNIQUE: The right tibia/fibula was examined in AP and lateral projections. FINDINGS: Post fixation changes with intramedullary arthur in place. No new fractures. There remains fra ctures of the tibia and fibula. Skin humble and bandage in place. No new fractures. IMPRESSION: Post fixation changes with hardware intact. No postop competition evident.
--- NOTE | 2023-06-16 17:46 | FL ---
Intraoperative/procedural fluoroscopic services were provided. Total fluoroscopy time is 2.57 minutes with a total of 4 submitted images to PACS. Please see the operative/procedural note for further det ails. DAP: 1.2364 mGym2
[2023-06-16] MEDS: SENNOSIDES-DOCUSATE SODIUM 1 EACH TAB PO SCH (19:45)
[2023-06-16] MEDS: HYDROcodone/APAP 7.5-325MG 1 EACH TAB PO PRN (19:45)
[2023-06-16] MEDS ORDERED: ASPIRIN 325 MG TAB PO SCH (21:00)
[2023-06-17] MEDS: HYDROcodone/APAP 7.5-325MG 1 EACH TAB PO PRN ×3 (04:23→20:40)
[2023-06-17] MEDS: SODIUM CHLORIDE 0.9% 1,000 ML IV SCH ×4 (05:30→21:24)
[2023-06-17] MEDS: HYDROmorphone 0.5 MG/0.5 ML SYRINGE IVP PRN ×2 (06:03→08:57)
[2023-06-17] MEDS: LORATADINE 10 MG TAB PO SCH (08:12)
[2023-06-17] MEDS: MONTELUKAST 10 MG TAB PO SCH (08:12)
[2023-06-17] MEDS: MAGNESIUM OXIDE 400 MG TAB PO SCH (08:12)
[2023-06-17] MEDS: CHOLECALCIFEROL 125 MCG (5000 IU) TABLET PO SCH (08:12)
[2023-06-17] MEDS: RIVAROXABAN 10 MG TAB PO SCH (08:12)
[2023-06-17] MEDS: SYMBICORT 80-4.5 MCG INHALER INHALATION SCH ×2 (08:27→20:03)
--- NOTE | 2023-06-17 10:23 | P.PN ---
Subjective Progress Note Date: 06/17/23 Ivana Betancur, is a 27 -year-old female who presented to [facility] emergency room with a chief complaint of right ankle pain after sustaining a fall. She was evaluated in the emergency room vital examination on presentation revealed a temperature of 98.6 pulse 103 respiration 18 blood pressure 135/90 pulse ox 100% on room air Laboratory data revealed a white blood count of 14.4 hemoglobin 13.4 platelet count 366 Past medical history significant for history of asthma, history of ALLERGIC rhinitis, history of ADHD On review of systems patient is alert and oriented 3 in no apparent distress she is complaining of right ankle pain otherwise she denies any complaints there is no fever or chills no headache or dizziness no chest pain no shortness of breath no cough no nausea or vomiting no abdominal pain no diarrhea and no urinary symptoms. On 06/17/2023 patient is alert and oriented 3. Patient is status post surgical intervention closed reduction and intramedullary nailing of the right tibia. Current vital signs temp 98.8, heart rate 70, respiratory rate 16, blood pr essure 94/54 pulse ox of 96% on room. Patient denies chest pain or shortness breath. Patient denies nausea vomiting or diarrhea. Patient denies any urinary burning. labwork Currently pending Objective - Vital Signs Vital signs: Vital Signs Temp 98.8 F 06/17/23 07:29 Pulse 70 06/17/23 07:29 Resp 16 06/17/23 07:29 BP 94/54 06/17/23 07:29 Pulse Ox 91 L 06/17/23 07:29 FiO2 Intake & Output 06/16/23 06/17/23 06/17/23 18:59 06:59 18:59 Intake Total 2051 810 Output Total 1800 1200 Balance 251 -1200 810 Weight 77.111 kg Intake: IV 1451 Intake, IV Titration 600 610 Amount Sodium Chloride 0.9% 1, 560 000 ml @ 70 mls/hr IV . [id number] [facility] Rx#:[id number] Sodium Chloride 0.9% 1, 600 000 ml @ 75 mls/hr IV . [id number] [facility] Rx#:[id number] ceFAZolin 2 gm In Sodium 50 Chloride 0.9% 50 ml @ 100 mls/hr IVPB Q8HR [facility] Rx# :[id number] Oral 200 Output: Urine 1700 1200 Estimated Blood Loss 100 Other: Voiding Method Indwelling Catheter - Exam In general patient is alert and oriented x 3 in no distress HEENT head normocephalic and atraumatic Neck is supple no JVD no goiter no lymphadenopathy no carotid bruit Chest examination is clear to auscultation no crackles no wheezing Cardiac exam reveals regular heart sounds S1 and S2 no gallops no murmurs Abdomen is soft nontender no organomegaly with normal bowel sounds Extremity exam reveals no edema no cyanosis or clubbing Neurological examination reveals no gross focal deficits - Labs CBC & Chem 7: 06/15/23 20:07 06/15/23 20:07 Assessment and Plan Assessment: Acute fracture of the right fibula diaphysis, with mild displacement, and acute spiral fracture of the distal right tibia with mild displacement. Status post surgical intervention on 06/16/2023 Underlying history of asthma stable at this time Underlying history of ALLERGIC rhinitis Underlying history of ADHD At this time patient was seen and examined Home medications reviewed and reordered Patient was seen by orthopedic surgery and plan is for surgery today Will continue to follow during this admission for medical management
--- NOTE | 2023-06-17 10:53 | P.PN ---
Subjective Progress Note Date: 06/17/23 This is a 27-year-old female who is status post closed reduction and intramedullary nailing right tibia. This is postoperative day #1 and patient is seen and evaluated at bedside today. Patient states that her pain is well controlled and she was able to work with physical therapy. Patient denies any fever/chills, numbness, weakness, tingling, abdominal pain, shortness of breath or chest pain. Objective - Vital Signs Vital signs: Vital Signs Temp 98.8 F 06/17/23 07:29 Pulse 70 06/17/23 07:29 Resp 16 06/17/23 07:29 BP 94/54 06/17/23 07:29 Pulse Ox 91 L 06/17/23 07:29 FiO2 Intake & Output 06/16/23 06/17/23 06/17/23 18:59 06:59 18:59 Intake Total 2051 810 Output Total 1800 1200 Balance 251 -1200 810 Weight 77.111 kg Intake: IV 1451 Intake, IV Titration 600 610 Amount Sodium Chloride 0.9% 1, 560 000 ml @ 70 mls/hr IV . [id number] [facility] Rx#:[id number] Sodium Chloride 0.9% 1, 600 000 ml @ 75 mls/hr IV . [id number] [facility] Rx#:[id number] ceFAZolin 2 gm In Sodium 50 Chloride 0.9% 50 ml @ 100 mls/hr IVPB Q8HR [facility] Rx# :[id number] Oral 200 Output: Urine 1700 1200 Estimated Blood Loss 100 Other: Voiding Method Indwelling Catheter - Exam On exam patient is resting comfortably in a chair in no acute distress. Patient is alert and oriented 3. Splint is clean, dry and intact. Capillary refill is normal at less than 2 seconds. Sensation intact. Neurovascular status and circulatory status are intact. - Labs CBC & Chem 7: 06/15/23 20:07 06/15/23 20:07 Assessment and Plan Assessment: Status post closed reduction and intramedullary nailing right tibia. (1) Fall Current Visit: Yes Status: Acute Code(s): W19.XXXA - UNSPECIFIED FALL, INITIAL ENCOUNTER SNOMED Code(s): 7832681 (2) Tibia/fibula fracture Current Visit: Yes Status: Acute Code(s): S82.209A - UNSP FRACTURE OF SHAFT OF UNSP TIBIA, INIT FOR CLOS FX; S82.409A - UNSP FRACTURE OF SHAFT OF UNSP FIBULA, INIT FOR CLOS FX SNOMED Code(s): 227001810 Plan: 1. Patient is to remain nonweightbearing to the right lower extremity with crutches. 2. Patient may transition to an equalizer boot which will be ordered today. 3. Continue pain control and routine postoperative care. 4. Xarelto for DVT prophylaxis. 5. Anticipate discharge home tomorrow.
[2023-06-17 11:54] LABS: Basophils # (A) 0.04 X 10*3/uL (0.00-0.10); Basophils % (A) 0.3 %; Eosinophils # (A) 0.01 X 10*3/uL (0.04-0.35); Eosinophils % (A) 0.1 %; HCT 33.8 % (37.2-46.3); HGB 10.9 d/dL (12.0-15.0); Lymphocytes # (A) 2.82 X 10*3/uL (0.90-5.00); MCH 30.1 pg (27.0-32.0); MCHC 32.2 d/dL (32.0-37.0); MCV 93.4 FL (80.0-97.0); Mean Platelet Volume 9.3 FL (9.5-12.2); Monocytes % (A) 8.3 %; NRBC Per 100 WBC 0 X 10*3/uL (0.00-0.01); Neutrophils # (A) 11.49 X 10*3/uL (1.80-7.70); Platelet Count 335 X 10*3/uL (140-440); RBC 3.62 X 10*6/uL (4.10-5.20); RDW 11.9 % (11.5-14.5); WBC 15.71 X 10*3/uL (4.50-10.00)
[2023-06-17] MEDS: HYDROmorphone 1 MG/ML 1 ML SYRINGE IVP PRN ×4 (11:56→22:45)
--- NOTE | 2023-06-17 19:30 | CT ---
EXAMINATION TYPE: CT brain wo con CT DLP: 1100 mGycm, Automated exposure control for dose reduction was used. DATE OF EXAM: 06/17/2023 6:54 PM COMPARISON: . CLINICAL INDICATION:Female, 27 years old with history of right pupil dilated, right pupil dilated. pt had surgery to her lower leg yesterday. TECHNIQUE: Brain: Axial CT images of the brain were obtained with coronal and sagittal reformats created and rev iewed. Contrast used: None. Oral contrast used: None. FINDINGS: Brain: Extra-axial spaces: No abnormal extra-axial fluid collections. Ventricular system: Within normal limits Cerebral parenchyma: No acute intraparenchymal hemorrhage or mass effect. The kingsley-white junction is well differentiated. Cerebellum: Unremarkable. Mass effect: No evidence of midline shift. Intracranial vasculature: unremarkable Soft tissues: Normal. Calvarium/osseous structures: No depressed skull fracture. Paranasal sinuses and mastoid air cells: Mild scattered paranasal sinus disease. Visualized orbits: Orbital contents are intact. IMPRESSION: No acute intracranial process.
[2023-06-17] MEDS: SENNOSIDES-DOCUSATE SODIUM 1 EACH TAB PO SCH (20:37)
[2023-06-18] MEDS: HYDROmorphone 1 MG/ML 1 ML SYRINGE IVP PRN ×6 (05:11→23:07)
[2023-06-18] MEDS: HYDROcodone/APAP 7.5-325MG 1 EACH TAB PO PRN ×3 (06:41→21:08)
[2023-06-18] MEDS: diazePAM 5 MG TAB PO PRN ×2 (07:12→21:53)
[2023-06-18] MEDS: RIVAROXABAN 10 MG TAB PO SCH (09:06)
[2023-06-18] MEDS: LORATADINE 10 MG TAB PO SCH (09:06)
[2023-06-18] MEDS: CHOLECALCIFEROL 125 MCG (5000 IU) TABLET PO SCH (09:06)
[2023-06-18] MEDS: MONTELUKAST 10 MG TAB PO SCH (09:06)
[2023-06-18] MEDS: MAGNESIUM OXIDE 400 MG TAB PO SCH (09:06)
[2023-06-18] MEDS: SYMBICORT 80-4.5 MCG INHALER INHALATION SCH ×2 (10:08→21:25)
--- NOTE | 2023-06-18 10:55 | CT ---
EXAMINATION TYPE: CT angio head neck CT DLP: 546.9 mGycm, Automated exposure control for dose reduction was used. DATE OF EXAM: 06/18/2023 10:08 AM COMPARISON: 06/17/2023.. 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 TECHNIQUE: Axially acquired helical CT angiogram of the head and neck was obtained with contrast. Axi al images are supplemented with 3D reconstructions which [facility] NASCET criteria used. Contrast used:65ml mL of Isovue 370 with IV Contrast, Oral contrast used: None. FINDINGS: CTA HEAD: No evidence of acute intracranial hemorrhage, mass effect, or midline shift. The ventricles, sulci, a nd cisterns are unremarkable. The visualized portions of the internal carotid arteries, middle cerebral arteries, anterior cerebral arteries, and posterior cerebral arteries are patent. The basilar and vertebral arteries are patent. The orbits are intact. The intra-articular fat is inta ct. The ophthalmic artery is opacified bilaterally. The right superior orbital vein has asymmetricall y decreased contrast within it compared to the left. CTA NECK: Right Carotid System: The common carotid artery and external carotid artery are patent. The carotid bifurcation demonstrate s no evidence of hemodynamically significant stenosis. The remaining portions of the internal carotid artery demonstrate normal size without significant narrowing. Left Carotid System: The common carotid artery and external carotid artery are patent. The carotid bifurcation demonstrate s no evidence of hemodynamically significant stenosis. The remaining portions of the internal carotid artery demonstrate normal size without significant narrowing. Vertebral arteries are patent without evidence hemodynamically significant stenosis. There is a three-vessel aortic arch. The origins of the great vessels are patent. No evidence of hemo dynamically significant stenosis. 8 mm right thyroid nodule. IMPRESSION: 1. Symmetric appearance of the orbits and globes. Slight asymmetric decreased right superior orbital vein contrast compared to left. Consider outpatient MRI for further evaluation. 2. No evidence of dissection of the cervical internal carotid arteries or vertebral arteries or any e vidence of significant stenosis at the carotid bifurcations. 3. No evidence of intracranial high-grade stenosis or intracranial aneurysm. 4. Right thyroid gland nodule measuring 8 mm.
--- NOTE | 2023-06-18 12:38 | P.CNNES ---
History of Present Illness Consult date: 06/18/23 Requesting physician: Nika Jackson Reason for Consult: right pupil dilated/slugghish History of Present Illness: This is a 27-year-old woman who presented emergency department because of ankle pain. Neurology is consulted for a dilated pupil is sluggishly reactive to light. It seems the patient and was at work and her legs got tangled with her coworker and her coworker that resulted in her falling and coworker fell on her. She was found to have tibia fracture and she had the closed reduction and intramedullary nailing of the right tibia. Yesterday the nurse in the afternoon noted that the patient the right pupil was dilated more than the left and was likely reactive to light. Today the nurse feels is improving and it is still more dilated on the right than left but it's last compared to yesterday. Patient denies any loss of consciousness the, any head trauma. Currently she denies of any headache, nausea vomiting, any facial weakness, any focal weakness, any numbness any difficulty getting her speech. She denies of any blurry vision. She denies any history of multiple sclerosis. She states that s he has asthma and she during his hospital visit she is requiring a different inhaler. Some other workup during his hospital visit consisted of: TSH is 1.540. CT of the head was reported as no acute intracranial process. I personally reviewed the CT and agree with report. Review of Systems Review of system: The 12 point system was reviewed and apparent positive and negative per HPI. Past Medical History Past Medical History: No Reported History Additional Past Medical History / Comment(s): bilateral broken arms History of Any Multi-Drug Resistant Organisms: None Reported Past Surgical History: No Surgical Hx Reported Additional Past Surgical History / Comment(s): wisdom teeth removal Past Psychological History: No Psychological Hx Reported, ADD/ADHD, Anxiety Smoking Status: Never smoker Past Alcohol Use History: Occasional Past Drug Use History: None Reported Medications and Allergies Home Medications Medication Instructions Recorded Confirmed Type Albuterol Sulfate [Albuterol 1 - 2 puff PO RT-Q6H PRN 06/15/23 06/15/23 History Sulfate Hfa] Biotin [Gvvy-Npnq-Dhnnv] 10,000 mcg PO DAILY 06/15/23 06/15/23 History Cetirizine HCl [Zyrtec] 10 mg PO DAILY 06/15/23 06/15/23 History Cholecalciferol [Vitamin D3 (125 250 mcg PO DAILY 06/15/23 06/15/23 History Mcg = 5000 Iu)] Fluticasone Propion/Salmeterol 1 puff INHALATION RT-BID 06/15/23 06/15/23 History [Advair 100-50 Diskus] Lisdexamfetamine Dimesylate 30 mg PO DAILY PRN 06/15/23 06/15/23 History [Vyvanse] Magnesium Oxide [Magnesium] 500 mg PO DAILY 06/15/23 06/15/23 History Montelukast [Singulair] 10 mg PO DAILY 06/15/23 06/15/23 History Fortunato Happy Yahaira-Celis 1 cap PO DAILY 06/15/23 06/15/23 History Probiotic/Prebiotic 1 cap PO DAILY 06/15/23 06/15/23 History Propranolol [Inderal] 10 - 20 mg PO DIRECTED PRN 06/15/23 06/16/23 History levonorgestreL [Kyleena (IUD)] 1 implant VAGINAL [id number] 06/15/23 06/15/23 History HYDROcodone/APAP 7.5-325MG [[place] 1 - 2 tab PO Q6H PRN #32 tab 06/17/23 Rx 7.5-325] Rivaroxaban [Xarelto] 10 mg PO DAILY #30 tab 06/17/23 Rx Sennosides [Senokot] 2 tab PO DAILY PRN #60 tablet 06/17/23 Rx Allergies Allergy/AdvReac Type Severity Reaction Status Date / Time bee venom protein (honey bee) Allergy Swelling Verified 06/16/23 13:37 cefixime [From Suprax] Allergy Rash/Hives Verified 06/16/23 13:49 soy Allergy Swelling Verified 06/16/23 13:37 cephalexin [From Keflex] AdvReac Nausea & Verified 06/16/23 13:37 Vomiting Physical Examination - Vital Signs Vital Signs: Vital Signs Temp Pulse Resp BP Pulse Ox 06/18/23 07:47 99.1 F 95 16 108/67 90 L 06/18/23 01:10 98.2 F 98 18 99/62 95 06/17/23 19:35 98.4 F 87 18 110/71 98 06/17/23 14:00 98.5 F 70 16 107/66 98 Intake and Output 06/17/23 06/18/23 06/18/23 22:59 06:59 14:59 Intake Total 200 680 Output Total 500 Balance -300 680 Intake: Intake, IV Titration 560 Amount Sodium Chloride 0.9% 1, 560 000 ml @ 70 mls/hr IV . [id number] LOU Rx#:[id number] Oral 200 120 Output: Urine 500 Other: # Voids 1 2 GENERAL: The patient is lying in bed and is not in acute distress. NEUROLOGICAL: Higher mental function: The patient is awake, alert, oriented to self, place and time. Patient is following commands. No aphasia and no neglect. Cranial nerves: The pupils are round, right is 5mm and left is 3mm and and reactive to light and accommodation. Visual bess are full to confrontation throughout. Extraocular movement is intact no nystagmus is noted. Facial sensation is normal to touch throughout. The facial strength is normal throughout. Hearing is normal bilaterally to hand rub. Tongue is midline and moved [id number] without any difficulty. No dysarthria is noted. Shoulder shrug is normal bilaterally. Motor: The strength is limited in assessment of the right lower extremity since has recent surgery for fracture of right tibia/has cast. Otheriwse 5 over 5 throughout. Normal tone and bulk. Cerebellum: Normal finger to nose bilaterally. Sensation: Sensation is limited in right lower but otherwise normal to touch throughout. Reflexes (right/left): Biceps 2+; triceps2+; brachioradialis; 2+ patellar; left is 2+ but unable to examine right , ankles 2+ left but unable to examine right.. Plantars is downgoing on the left and unable to examine right. Results - Laboratory Findings CBC and BMP: 06/17/23 06:38 06/15/23 20:07 Abnormal Lab Findings: Abnormal Labs 06/15/23 06/15/23 06/17/23 20:07 20:07 06:38 WBC 14.4 H 15.71 H RBC 3.62 L Hgb 10.9 L Hct 33.8 L MPV 9.3 L Neutrophils # 11.2 H 11.49 H Monocytes # 1.30 H Eosinophils # 0.01 L Glucose 112 H Assessment and Plan Assessment: This is a 27-year-old woman who had a fall at work due to her coworker and herself legs being tangle together but denies any head trauma or LOC on 023. She has right tibia fracture s/o closed reduction on 06/16/2023. But on 06/17/2023 nurse noticed large anisocoria on the right eye and sluggishly reactive to light but felt improving today. Patient is using a different inhaler for her asthma. Anisocoria of right eye and is reactive to light but otherwise no other neurological issues: Unsure exact cause. Unsure if due to medication effect (inhaler) vs ?sedation she received for surgery that is lingering vs true neurological or ophthamological issue. Patient denies of headache, visual disturbance and no focality on examination beside anisocoria. Plan: I ordered CT angiography of the head and neck to rule out any aneurysm which I feel is unlikely. Tomorrow I'll pursue with MRI of the brain and orbits I consulted ophthalmology team If possible to change the inhaler medication and the patient was notified to avoid any spray that goes to her eyes. Defer the rest of management to the primary and another specialist The plan was discussed with the patient and her nurse Thank you for the consultation Time with Patient: Greater than 30
--- NOTE | 2023-06-18 15:24 | P.PN ---
Subjective Progress Note Date: 06/18/23 This is a 27-year-old female who is status post closed reduction and intramedullary nailing right tibia. This is postoperative day #2 and patient is seen and evaluated at bedside today. Patient states that her pain is well controlled and she was able to work with physical therapy today. The patient did have to be evaluated by neurology for the right eye. Patient underwent CT angiography of the head and neck and a brain CT. Patient is scheduled for an MRI of her brain tomorrow. Ophthalmology is also consulted. Patient denies any fever/chills, numbness, weakness, tingling, abdominal pain, shortness of breath or chest pain. Objective - Vital Signs Vital signs: Vital Signs Temp 98.4 F 06/18/23 14:00 Pulse 94 06/18/23 14:00 Resp 18 06/18/23 14:00 BP 104/66 06/18/23 14:00 Pulse Ox 99 06/18/23 14:00 FiO2 Intake & Output 06/17/23 06/18/23 06/18/23 18:59 06:59 18:59 Intake Total 1210 680 Output Total 500 Balance 710 680 Intake: Intake, IV Titration 610 560 Amount Sodium Chloride 0.9% 1, 560 560 000 ml @ 70 mls/hr IV . [id number] LOU Rx#:[id number] ceFAZolin 2 gm In Sodium 50 Chloride 0.9% 50 ml @ 100 mls/hr IVPB Q8HR LOU Rx# :[id number] Oral 600 120 Output: Urine 500 Other: # Voids 1 2 - Exam On exam patient is resting comfortably in bed in no acute distress. Patient is alert and oriented 3. Splint is removed and incisions are clean, dry and intact. There is no active drainage. Surgical clips are intact. Calf is soft and nontender to palpation. Capillary refill is normal at less than 2 seconds. Sensation intact. Neurovascular status and circulatory status are intact. - Labs CBC & Chem 7: 06/17/23 06:38 06/15/23 20:07 Assessment and Plan Assessment: Status post closed reduction and intramedullary nailing right tibia. (1) Fall Current Visit: Yes Status: Acute Code(s): W19.XXXA - UNSPECIFIED FALL, INITIAL ENCOUNTER SNOMED Code(s): 0461966 (2) Tibia/fibula fracture Current Visit: Yes Status: Acute Code(s): S82.209A - UNSP FRACTURE OF SHAFT OF UNSP TIBIA, INIT FOR CLOS FX; S82.409A - UNSP FRACTURE OF SHAFT OF UNSP FIBULA, INIT FOR CLOS FX SNOMED Code(s): 788198834 Plan: 1. Patient is to remain nonweightbearing to the right lower extremity with crutches. 2. Patient may transition to an equalizer boot. 3. Continue pain control and routine postoperative care. 4. Xarelto for DVT prophylaxis. 5. Anticipate discharge home tomorrow if cleared medically.
--- NOTE | 2023-06-18 16:46 | P.PN ---
Subjective Progress Note Date: 06/18/23 Ivana Betancur, is a 27 -year-old female who presented to [facility] emergency room with a chief complaint of right ankle pain after sustaining a fall. She was evaluated in the emergency room vital examination on presentation revealed a temperature of 98.6 pulse 103 respiration 18 blood pressure 135/90 pulse ox 100% on room air Laboratory data revealed a white blood count of 14.4 hemoglobin 13.4 platelet count 366 Past medical history significant for history of asthma, history of ALLERGIC rhinitis, history of ADHD On review of systems patient is alert and oriented 3 in no apparent distress she is complaining of right ankle pain otherwise she denies any complaints there is no fever or chills no headache or dizziness no chest pain no shortness of breath no cough no nausea or vomiting no abdominal pain no diarrhea and no urinary symptoms. On 06/17/2023 patient is alert and oriented 3. Patient is status post surgical intervention closed reduction and intramedullary nailing of the right tibia. Current vital signs temp 98.8, heart rate 70, respiratory rate 16, blood pr essure 94/54 pulse ox of 96% on room. Patient denies chest pain or shortness breath. Patient denies nausea vomiting or diarrhea. Patient denies any urinary burning. labwork Currently pending On 06/18/2023 patient was seen and examined on the medical floor she is alert and oriented 3 in no apparent distress, yesterday she was noticed to have a dilated right pupil, computed tomography scan of the brain without contrast was done and did not reveal any acute intracranial bleeding, neurology consultation was requested, otherwise patient is doing well she denies any fever or chills no headache or dizziness no chest pain no shortness of breath no cough no nausea or vomiting no abdominal pain no diarrhea and no urinary symptoms. Objective - Vital Signs Vital signs: Vital Signs Temp 99.1 F 06/18/23 07:47 Pulse 95 06/18/23 07:47 Resp 16 06/18/23 07:47 BP 108/67 06/18/23 07:47 Pulse Ox 90 L 06/18/23 07:47 FiO2 Intake & Output 06/17/23 06/18/23 06/18/23 18:59 06:59 18:59 Intake Total 1210 680 Output Total 500 Balance 710 680 Intake: Intake, IV Titration 610 560 Amount Sodium Chloride 0.9% 1, 560 560 000 ml @ 70 mls/hr IV . [id number] LOU Rx#:[id number] ceFAZolin 2 gm In Sodium 50 Chloride 0.9% 50 ml @ 100 mls/hr IVPB Q8HR LOU Rx# :[id number] Oral 600 120 Output: Urine 500 Other: # Voids 1 2 - Exam In general patient is alert and oriented x 3 in no distress HEENT head normocephalic and atraumatic Neck is supple no JVD no goiter no lymphadenopathy no carotid bruit Chest examination is clear to auscultation no crackles no wheezing Cardiac exam reveals regular heart sounds S1 and S2 no gallops no murmurs Abdomen is soft nontender no organomegaly with normal bowel sounds Extremity exam reveals no edema no cyanosis or clubbing Neurological examination reveals no gross focal deficits - Labs CBC & Chem 7: 06/17/23 06:38 06/15/23 20:07 Assessment and Plan Assessment: Acute fracture of the right fibula diaphysis, with mild displacement, and acute spiral fracture of the distal right tibia with mild displacement. Status post surgical intervention on 06/16/2023 Underlying history of asthma stable at this time Underlying history of ALLERGIC rhinitis Underlying history of ADHD At this time patient was seen and examined Home medications reviewed and reordered Patient was seen by orthopedic surgery and plan is for surgery today Will continue to follow during this admission for medical management
[2023-06-18] MEDS: SENNOSIDES-DOCUSATE SODIUM 1 EACH TAB PO SCH (19:37)
[2023-06-19] MEDS: HYDROmorphone 1 MG/ML 1 ML SYRINGE IVP PRN ×5 (03:38→22:23)
[2023-06-19] MEDS: HYDROcodone/APAP 7.5-325MG 1 EACH TAB PO PRN ×4 (05:39→23:21)
[2023-06-19] MEDS: SYMBICORT 80-4.5 MCG INHALER INHALATION SCH ×2 (08:51→20:26)
[2023-06-19 09:33] LABS: ALT 18 U/L (4-34); AST 26 U/L (14-36); African American GFR (CKD) >90 (>60 ml/min/1.73 sqM); Albumin 3.7 g/dL (3.5-5.0); Albumin/Globulin Ratio 1.3; Alkaline Phosphatase 84 U/L (38-126); Anion Gap 8 mmol/L; Blood Urea Nitrogen 7 mg/dL (7-17); Calcium 8.7 mg/dL (8.4-10.2); Carbon Dioxide 27 mmol/L (22-30); Chloride 102 mmol/L (98-107); Globulin 2.9 g/dL; Glucose 105 mg/dL (74-99); Non-African American GFR(CKD) >90 (>60 ml/min/1.73 sqM); Potassium 4.5 mmol/L (3.5-5.1); Sodium 137 mmol/L (137-145); Total Bilirubin 0.8 mg/dL (0.2-1.3); Total Protein 6.6 g/dL (6.3-8.2)
[2023-06-19] MEDS: CHOLECALCIFEROL 125 MCG (5000 IU) TABLET PO SCH (09:40)
[2023-06-19] MEDS: LORATADINE 10 MG TAB PO SCH (09:40)
[2023-06-19] MEDS: MAGNESIUM OXIDE 400 MG TAB PO SCH (09:40)
[2023-06-19] MEDS: RIVAROXABAN 10 MG TAB PO SCH (09:40)
[2023-06-19] MEDS: MONTELUKAST 10 MG TAB PO SCH (09:40)
--- NOTE | 2023-06-19 09:46 | P.PN ---
Subjective Progress Note Date: 06/19/23 Ivana Betancur, is a 27 -year-old female who presented to [facility] emergency room with a chief complaint of right ankle pain after sustaining a fall. She was evaluated in the emergency room vital examination on presentation revealed a temperature of 98.6 pulse 103 respiration 18 blood pressure 135/90 pulse ox 100% on room air Laboratory data revealed a white blood count of 14.4 hemoglobin 13.4 platelet count 366 Past medical history significant for history of asthma, history of ALLERGIC rhinitis, history of ADHD On review of systems patient is alert and oriented 3 in no apparent distress she is complaining of right ankle pain otherwise she denies any complaints there is no fever or chills no headache or dizziness no chest pain no shortness of breath no cough no nausea or vomiting no abdominal pain no diarrhea and no urinary symptoms. On 06/17/2023 patient is alert and oriented 3. Patient is status post surgical intervention closed reduction and intramedullary nailing of the right tibia. Current vital signs temp 98.8, heart rate 70, respiratory rate 16, blood pr essure 94/54 pulse ox of 96% on room. Patient denies chest pain or shortness breath. Patient denies nausea vomiting or diarrhea. Patient denies any urinary burning. labwork Currently pending On 06/18/2023 patient was seen and examined on the medical floor she is alert and oriented 3 in no apparent distress, yesterday she was noticed to have a dilated right pupil, computed tomography scan of the brain without contrast was done and did not reveal any acute intracranial bleeding, neurology consultation was requested, otherwise patient is doing well she denies any fever or chills no headache or dizziness no chest pain no shortness of breath no cough no nausea or vomiting no abdominal pain no diarrhea and no urinary symptoms. On 06/19/2023 patient is alert and oriented 3. Awaiting MRI results an customer service manager consult. At this time patient denies chest pain or shortness of breath. Patient denies nausea vomiting or diarrhea. Patient denies any urinary burning or frequency. current temp 98.0, heart rate 82, respiratory rate 18, blood pressure 118/74 pulse ox 95% on room air Objective - Vital Signs Vital signs: Vital Signs Temp 98.0 F 06/19/23 07:05 Pulse 82 06/19/23 07:05 Resp 18 06/19/23 07:05 BP 118/74 06/19/23 07:05 Pulse Ox 95 06/19/23 07:05 FiO2 Intake & Output 06/18/23 06/19/23 06/19/23 18:59 06:59 18:59 Intake Total 680 800 Output Total 500 Balance 680 300 Intake: Intake, IV Titration 560 800 Amount Sodium Chloride 0.9% 1, 560 800 000 ml @ 70 mls/hr IV . [id number] LOU Rx#:[id number] Oral 120 Output: Urine 500 Other: Voiding Method Indwelling Catheter # Voids 2 3 - Exam In general patient is alert and oriented x 3 in no distress HEENT head normocephalic and atraumatic Neck is supple no JVD no goiter no lymphadenopathy no carotid bruit Chest examination is clear to auscultation no crackles no wheezing Cardiac exam reveals regular heart sounds S1 and S2 no gallops no murmurs Abdomen is soft nontender no organomegaly with normal bowel sounds Extremity exam reveals no edema no cyanosis or clubbing Neurological examination reveals no gross focal deficits - Labs CBC & Chem 7: 06/17/23 06:38 06/19/23 07:06 Labs: Abnormal Lab Results - Last 24 Hours (Table) 06/19/23 Range/Units 07:06 Glucose 105 H (74-99) mg/dL Assessment and Plan Assessment: Acute fracture of the right fibula diaphysis, with mild displacement, and acute spiral fracture of the distal right tibia with mild displacement. Status post surgical intervention on 06/16/2023 Underlying history of asthma stable at this time Underlying history of ALLERGIC rhinitis Underlying history of ADHD Anisocoria of the right eye. CT of head completed. MRI completed awaiting ophthalmology input. Neurology services are following At this time patient was seen and examined Home medications reviewed and reordered Patient was seen by orthopedic surgery and plan is for surgery today Will continue to follow during this admission for medical management
--- NOTE | 2023-06-19 11:12 | MR ---
EXAMINATION TYPE: MR brain/orbits wo/w con DATE OF EXAM: 06/19/2023 9:22 AM COMPARISON: CT 06/18/2023. CLINICAL INDICATION:Female, 27 years old with history of anisocoria (right > left); Anisocoria (Right >Left).\ TECHNIQUE: Multi planar, multi sequence imaging was performed through the orbits/face. Post contrast imaging was performed after the administration of 7.5 cc of Gadavist intravenously. FINDINGS, ORBITS: Motion limits evaluation. The globes appear symmetrical. Signal intensity of the globes and optic nerves are within normal limits. The intraorbital fat appears preserved. Both lacr imal glands are unremarkable. The extraocular muscles appear symmetric. After administration of contr ast, no abnormal enhancement is seen. The superior orbital veins are patent bilaterally FINDINGS, BRAIN: The kingsley-white junctions, ventricular system, and cisterns do appear unremarkable. Diffusion-weighted imaging shows no evidence of restricted diffusion. Cavernous sinus is within nor mal limits. After administration of contrast, no abnormal enhancement is seen within the brain. The bone marrow signal is within normal limits. Paranasal sinuses and mastoid air cells: No significant paranasal sinus disease. Visualized orbits: Orbital contents are intact. IMPRESSION: Motion limited exam. 1. Superior orbital veins are patent bilaterally. 2. No evidence of intraorbital mass or significant abnormality. 3. No evidence of intracranial mass nor acute/subacute CVA accident.
[2023-06-19 11:29] LABS: Basophils # (A) 0.08 X 10*3/uL (0.00-0.10); Basophils % (A) 0.7 %; Eosinophils # (A) 0.38 X 10*3/uL (0.04-0.35); Eosinophils % (A) 3.5 %; HGB 11.1 d/dL (12.0-15.0); Lymphocytes # (A) 3.34 X 10*3/uL (0.90-5.00); Lymphocytes % (A) 30.5 %; MCH 29.8 pg (27.0-32.0); MCHC 31.7 d/dL (32.0-37.0); MCV 93.8 FL (80.0-97.0); Mean Platelet Volume 9.3 FL (9.5-12.2); Monocytes # (A) 1.06 X 10*3/uL (0.20-1.00); Monocytes % (A) 9.7 %; NRBC Per 100 WBC 0 X 10*3/uL (0.00-0.01); Neutrophils # (A) 6.03 X 10*3/uL (1.80-7.70); Neutrophils % (A) 55.1 %; Platelet Count 362 X 10*3/uL (140-440); RBC 3.73 X 10*6/uL (4.10-5.20); RDW 11.9 % (11.5-14.5); WBC 10.94 X 10*3/uL (4.50-10.00)
--- NOTE | 2023-06-19 13:11 | P.PN ---
Subjective Progress Note Date: 06/19/23 This is a 27-year-old female who is status post closed reduction and intramedullary nailing right tibia on 06/17/23. This is postoperative day #3. Patient is examined bedside. She states pain is well-controlled at this time. She will transition into tall CAM boot today. Patient is being followed by neurology and had MRI of the brain today. She has no new complaints. Objective - Vital Signs Vital signs: Vital Signs Temp 98.0 F 06/19/23 07:05 Pulse 82 06/19/23 07:05 Resp 18 06/19/23 07:05 BP 118/74 06/19/23 07:05 Pulse Ox 95 06/19/23 07:05 FiO2 Intake & Output 06/18/23 06/19/23 06/19/23 18:59 06:59 18:59 Intake Total 680 800 Output Total 500 Balance 680 300 Intake: Intake, IV Titration 560 800 Amount Sodium Chloride 0.9% 1, 560 800 000 ml @ 70 mls/hr IV . [id number] [facility] Rx#:[id number] Oral 120 Output: Urine 500 Other: Voiding Method Indwelling Catheter # Voids 2 3 1 - Exam On examination, patient is sitting up in bed in no apparent distress. She is alert and orientated x3. On inspection of the right lower extremity, there is a clean appearing splint in place. Visible portion of the toes are warm and well perfused. She is able to wiggle toes appropriately. - Labs CBC & Chem 7: 06/19/23 07:06 06/19/23 07:06 Labs: Abnormal Lab Results - Last 24 Hours (Table) 06/19/23 06/19/23 Range/Units 07:06 07:06 WBC 10.94 H (4.50-10.00) X 10*3/uL RBC 3.73 L (4.10-5.20) X 10*6/uL Hgb 11.1 L (12.0-15.0) d/dL Hct 35.0 L (37.2-46.3) % MCHC 31.7 L (32.0-37.0) d/dL MPV 9.3 L (9.5-12.2) FL Monocytes # 1.06 H (0.20-1.00) X 10*3/uL Eosinophils # 0.38 H (0.04-0.35) X 10*3/uL Glucose 105 H (74-99) mg/dL Assessment and Plan Assessment: Closed reduction and intramedullary nailing right tibia on 06/17/23. Postoperative day #3. Plan: - Non-weight bearing operative extremity with crutches. Keep operative extremity elevated for swelling and pain control. - Patient will transition from splint to tall CAM boot today. - Continue pain management as needed. - Xarelto for DVT prophylaxis. - Anticipate discharge home when medically cleared.
--- NOTE | 2023-06-19 16:15 | P.PN ---
Subjective Progress Note Date: 06/19/23 I am following-up seeing the patient and she denies any visual disturbance, headache, nausea or any new neurological issues. Objective - Vital Signs Vital signs: Vital Signs Temp 97.9 F 06/19/23 14:00 Pulse 82 06/19/23 14:00 Resp 16 06/19/23 14:00 BP 129/81 06/19/23 14:00 Pulse Ox 99 06/19/23 14:00 FiO2 Intake & Output 06/18/23 06/19/23 06/19/23 18:59 06:59 18:59 Intake Total 680 800 Output Total 500 Balance 680 300 Intake: Intake, IV Titration 560 800 Amount Sodium Chloride 0.9% 1, 560 800 000 ml @ 70 mls/hr IV . [id number] [facility] Rx#:[id number] Oral 120 Output: Urine 500 Other: Voiding Method Indwelling Catheter # Voids 2 3 1 - Exam GENERAL: The patient is lying in bed and is not in acute distress. NEUROLOGICAL: Higher mental function: The patient is awake, alert, oriented to self, place and time. Patient is following commands. No aphasia and no neglect. Cranial nerves: The pupils are round, right is 5mm and left is 3mm and and reactive to light and accommodation. Visual bess are full to confrontation throughout. Extraocular movement is intact no nystagmus is noted. Facial sensation is normal to touch throughout. The facial strength is normal throughout. Hearing is normal bilaterally to hand rub. Tongue is midline and moved [id number] without any difficulty. No dysarthria is noted. Shoulder shrug is normal bilaterally. Motor: The strength is limited in assessment of the right lower extremity since has recent surgery for fracture of right tibia/has cast. Otheriwse 5 over 5 throughout. Normal tone and bulk. Cerebellum: Normal finger to nose bilaterally. Sensation: Sensation is limited in right lower but otherwise normal to touch throughout. Reflexes (right/left): Biceps 2+; triceps2+; brachioradialis; 2+ patellar; left is 2+ but unable to examine right , ankles 2+ left but unable to examine right.. Plantars is downgoing on the left and unable to examine right. Some other workup during his hospital visit consisted of: TSH is 1.540. CT of the head was reported as no acute intracranial process. I personally reviewed the CT and agree with report. CT angiography of the head and neck is reported as symmetric appearance of the orbits and globes. Slight asymmetric decreased right superior orbital vein contrast compared to the left. Consider outpatient MRI for further evaluation. No evidence of dissection of the cervical internal carotid artery or vertebral artery or any evidence of significant stenosis at the carotid bifurcation. No evidence of intracranial high-grade stenosis or intracranial aneurysm. Right thyroid gland nodule measuring 8 mm. MRI of the brain and orbit with and without is reported as supraorbital vein are patent bilaterally. No evidence of intraorbital mass or significant abnorma lity. No evidence of intracranial mass nor acute/subacute CVA accident. I personally reviewed the MRI of the orbit in the brain and I feel that it's unremarkable. - Labs CBC & Chem 7: 06/19/23 07:06 06/19/23 07:06 Labs: Abnormal Lab Results - Last 24 Hours (Table) 06/19/23 06/19/23 Range/Units 07:06 07:06 WBC 10.94 H (4.50-10.00) X 10*3/uL RBC 3.73 L (4.10-5.20) X 10*6/uL Hgb 11.1 L (12.0-15.0) d/dL Hct 35.0 L (37.2-46.3) % MCHC 31.7 L (32.0-37.0) d/dL MPV 9.3 L (9.5-12.2) FL Monocytes # 1.06 H (0.20-1.00) X 10*3/uL Eosinophils # 0.38 H (0.04-0.35) X 10*3/uL Glucose 105 H (74-99) mg/dL Assessment and Plan Assessment: This is a 27-year-old woman who had a fall at work due to her coworker and herself legs being tangle together but denies any head trauma or LOC on 06/15/2023. She has right tibia fracture s/o closed reduction on 06/16/2023. But on 06/17/2023 nurse noticed large anisocoria on the right eye and sluggishly reactive to light but felt improving today. Patient is using a different inhaler for her asthma. Anisocoria of right eye and is reactive to light but otherwise no other neurological issues: Unsure exact cause. Unsure if due to medication effect (inhaler) vs ?sedation she received for surgery that is lingering. MRI of the brain and orbit is negative. CTA is negative for any aneurysm. Patient denies of headache, visual disturbance and no focality on examination beside anisocoria. Plan: I consulted ophthalmology team If possible to change the inhaler medication and the patient was notified to avoid any spray that goes to her eyes. Defer the rest of management to the primary and another specialist. Recommend the patient to follow-up with a neurologist and mule tender in outpatient for further evaluation. Unsure if patient has a physiological anisocoria at baseline and that this was not noticed versus truly medication effect. The plan was discussed with the patient and her nurse. Time with Patient: Less than 30
[2023-06-19] MEDS: SENNOSIDES-DOCUSATE SODIUM 1 EACH TAB PO SCH (20:54)
[2023-06-19] MEDS: diazePAM 5 MG TAB PO PRN (20:54)
--- NOTE | 2023-06-19 22:29 | CONS ---
CONSULTATION HISTORY: This is a 27-year-old female who sustained an ankle injury while at work during a fall. The patient presented to the ER and ultimately diagnosed with a tibia and fibula fracture. The patient has undergone surgery and is currently resting comfortably at bedside. During the course of the patient's recovery, it was noted that she exhibited evidence of a dilated pupil in the right eye though denied any visual symptoms with it. CT of the head was performed which did not reveal the presence of any pathology. I was asked to determine the significance of this pupillary dilation and whether there was additional scrutiny. PAST MEDICAL HISTORY: Previous medical history is significant for asthma for which she takes inhalers frequently. PHYSICAL EXAMINATION: VISUAL ACUITY: Uncorrected visual acuity measured 2020 at near bilaterally. The pupils were nearly symmetric with the right measuring approximately 5 mm and the left 4.5 mm. There was no afferent pupillary defect. Extraocular movements were full in all gaze positions. On penlight exam, the lids were normal. The conjunctiva was quiet. Both corneas were clear. The anterior chambers were quite well formed. The iris was normal and the lens was well centered. IMPRESSION AND PLAN: Anisocoria. 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 During my exam, I could barely discern a difference between the 2 eyes and I believe this will continue to fade with time. Of course, there were other conditions that may contribute to the pupillary difference and may necessitate further workup upon discharge from the hospital. I would be happy to see her upon discharge and continue this workup if necessary as an outpatient. MMODL / IJN: [id number] /
[2023-06-20] MEDS: HYDROmorphone 1 MG/ML 1 ML SYRINGE IVP PRN ×2 (01:39→06:38)
[2023-06-20] MEDS: SYMBICORT 80-4.5 MCG INHALER INHALATION SCH (08:02)
[2023-06-20 08:03] VITALS: BP 100/60; PULSE 84; RESP 16; TEMP 97.9
[2023-06-20] MEDS: CHOLECALCIFEROL 125 MCG (5000 IU) TABLET PO SCH (08:16)
[2023-06-20] MEDS: RIVAROXABAN 10 MG TAB PO SCH (08:16)
[2023-06-20] MEDS: LORATADINE 10 MG TAB PO SCH (08:16)
[2023-06-20] MEDS: MAGNESIUM OXIDE 400 MG TAB PO SCH (08:16)
[2023-06-20] MEDS: MONTELUKAST 10 MG TAB PO SCH (08:16)
[2023-06-20] MEDS: HYDROcodone/APAP 7.5-325MG 1 EACH TAB PO PRN ×2 (08:16→13:21)
[2023-06-20 09:13] LABS: Basophils # (A) 0.06 X 10*3/uL (0.00-0.10); Basophils % (A) 0.6 %; Eosinophils % (A) 5.2 %; HCT 33.8 % (37.2-46.3); HGB 10.9 d/dL (12.0-15.0); Lymphocytes # (A) 3.24 X 10*3/uL (0.90-5.00); Lymphocytes % (A) 33.7 %; MCH 30.3 pg (27.0-32.0); MCHC 32.2 d/dL (32.0-37.0); MCV 93.9 FL (80.0-97.0); Mean Platelet Volume 8.9 FL (9.5-12.2); Monocytes % (A) 9.4 %; NRBC Per 100 WBC 0 X 10*3/uL (0.00-0.01); Neutrophils # (A) 4.86 X 10*3/uL (1.80-7.70); Neutrophils % (A) 50.5 %; Platelet Count 379 X 10*3/uL (140-440); RDW 11.9 % (11.5-14.5); WBC 9.62 X 10*3/uL (4.50-10.00)
[2023-06-20 09:24] LABS: Blood Urea Nitrogen 9.6 mg/dL (9.0-27.0); Glucose 95 mg/dL (70-110)
[2023-06-20 09:25] LABS: ALT 17 U/L (8-44); AST 22 U/L (13-35); Albumin 3.8 d/dL (3.8-4.9); Albumin/Globulin Ratio 1.65 Ratio (1.60-3.17); Alkaline Phosphatase 83 U/L (41-126); Carbon Dioxide 26.9 mmol/L (21.6-31.8); Chloride 102 mmol/L (96-109); Globulin 2.3 d/dL (1.6-3.3); Potassium 4.6 mmol/L (3.5-5.5); Sodium 138 mmol/L (135-145); Total Bilirubin 0.6 mg/dL (0.3-1.2); Total Protein 6.1 d/dL (6.2-8.2)
--- NOTE | 2023-06-20 10:16 | P.DS ---
Providers Date of admission: 06/15/23 17:19 Expected date of discharge: 06/20/23 Attending physician: Jitendra Allred Consults: 06/15/23 16:49 Consult Physician Routine Consulting Provider: Nika Jackson Consult Reason/Comments: Tib/fib fx Do you want consulting provider notified?: Yes 06/17/23 18:17 Consult Physician Routine Consulting Provider: Endy Mcneal Consult Reason/Comments: right pupil dilated/sluggish Do you want consulting provider notified?: Yes 06/18/23 11:31 Consult Physician Routine Consulting Provider: Cheng Louise Consult Reason/Comments: anisocoria right with ?abnormal CTA Do you want consulting provider notified?: Yes Primary care physician: Jennifer Putnam [facility] Course: This patient is a 27-year-old female who sustained a fall on 06/15/23. X-rays in the emergency department revealed right midshaft tibia and fibula fractures. Patient was admitted under the care of orthopedic surgery for surgical intervention. Patient underwent a closed reduction and intramedullay nailing right tibia on 06/16/[address] Allred. The procedure is performed without complication or sequelae. The patient is doing well postoperatively. Vital signs are stable on postop day #4. The patient is examined bedside this morning. She transitioned into a tall CAM boot yesterday. She states the boot is comfortable. Patient is requesting her dressing be changed before discharge. There are no new complaints. On examination, the patient is sitting up in bed in no acute distress. Patient is alert and orientated x3. On inspection of the right lower extremity, there is a tall CAM boot in place. Patient is able to dorsiflex and plantar flex toes without issue. The toes are warm and well-perfused with brisk capillary refill. Sensation is intact to light touch of the dorsal and plantar foot, as well as first dorsal webspace. The right calf is soft and non-tender to palpation. The patient is discharged home today pending medical clearance today. Please refer to the med rec for accurate list of medications. Patient Condition at Discharge: Serious Plan - Discharge Summary New Discharge Prescriptions: New Sennosides [Senokot] 2 tab PO DAILY PRN #60 tablet PRN Reason: Constipation HYDROcodone/APAP 7.5-325MG [Bedford 7.5-325] 1 - 2 tab PO Q6H PRN #32 tab PRN Reason: Pain Rivaroxaban [Xarelto] 10 mg PO DAILY #30 tab No Action Cholecalciferol [Vitamin D3 (125 Mcg = 5000 Iu)] 250 mcg PO DAILY Propranolol [Inderal] 10 - 20 mg PO DIRECTED PRN PRN Reason: Anxiety Cetirizine HCl [Zyrtec] 10 mg PO DAILY Biotin [Rpwb-Rzis-Cwuap] 10,000 mcg PO DAILY Lisdexamfetamine Dimesylate [Vyvanse] 30 mg PO DAILY PRN PRN Reason: adhd Magnesium Oxide [Magnesium] 500 mg PO DAILY levonorgestreL [Kyleena (IUD)] 1 implant VAGINAL [id number] Fortunato Happy Yahaira-Celis 1 cap PO DAILY Montelukast [Singulair] 10 mg PO DAILY Fluticasone Propion/Salmeterol [Advair 100-50 Diskus] 1 puff INHALATION RT- BID Albuterol Sulfate [Albuterol Sulfate Hfa] 1 - 2 puff PO RT-Q6H PRN PRN Reason: Shortness Of Breath Probiotic/Prebiotic 1 cap PO DAILY Discharge Medication List Albuterol Sulfate [Albuterol Sulfate Hfa] 1 - 2 puff PO RT-Q6H PRN 06/15/23 [History] Biotin [Zeif-Dhwy-Gbunn] 10,000 mcg PO DAILY 06/15/23 [History] Cetirizine HCl [Zyrtec] 10 mg PO DAILY 06/15/23 [History] Cholecalciferol [Vitamin D3 (125 Mcg = 5000 Iu)] 250 mcg PO DAILY 06/15/23 [History] Fluticasone Propion/Salmeterol [Advair 100-50 Diskus] 1 puff INHALATION RT-BID 06/15/23 [History] Lisdexamfetamine Dimesylate [Vyvanse] 30 mg PO DAILY PRN 06/15/23 [History] Magnesium Oxide [Magnesium] 500 mg PO DAILY 06/15/23 [History] Montelukast [Singulair] 10 mg PO DAILY 06/15/23 [History] Fortunato Happy Yahaira-Celis 1 cap PO DAILY 06/15/23 [History] Probiotic/Prebiotic 1 cap PO DAILY 06/15/23 [History] Propranolol [Inderal] 10 - 20 mg PO DIRECTED PRN 06/15/23 [History] levonorgestreL [Kyleena (IUD)] 1 implant VAGINAL [id number] 06/15/23 [History] HYDROcodone/APAP 7.5-325MG [Bedford 7.5-325] 1 - 2 tab PO Q6H PRN #32 tab 06/17/23 [Rx] Rivaroxaban [Xarelto] 10 mg PO DAILY #30 tab 06/17/23 [Rx] Sennosides [Senokot] 2 tab PO DAILY PRN #60 tablet 06/17/23 [Rx] Follow up Appointment(s)/Referral(s): Jennifer Putnam MD [Primary Care Provider] - 1-2 days Jitendra Allred DO [Doctor of Osteopathic Medicine] - 07/01/23 10:30 am Activity/Diet/Wound Care/Special Instructions: Keep tall CAM boot in place at all times. Keep current dressing in place for 48 hours. After 48 hours, may perform daily dressing changes. Do not get incisions wet. Elevate right lower extremity for swelling. Nonweightbearing to the right lower extremity with crutches. Please take Xarelto daily for 30 days to help prevent blood clots. Please follow up with [facility] and call with any questions or concerns, .
--- NOTE | 2023-06-20 12:07 | P.PN ---
Subjective Progress Note Date: 06/20/23 The patient is seen at bedside and she sitting in a recliner chair states she feels about the same. Denies of any headache, visual disturbance, any new neurological issues. She stated she did not use the inhaler today. The shop tailor [place] the patient yesterday and he felt that anisocoria is likely pharmacological pupil from the asthma medication and during his examination he could barely discern the difference between the 2 eyes. Objective - Vital Signs Vital signs: Vital Signs Temp 97.9 F 06/20/23 06:50 Pulse 84 06/20/23 06:50 Resp 16 06/20/23 06:50 BP 100/60 06/20/23 06:50 Pulse Ox 95 06/20/23 06:50 FiO2 Intake & Output 06/19/23 06/20/23 06/20/23 18:59 06:59 18:59 Other: Voiding Method Toilet # Voids 3 2 - Exam GENERAL: The patient is lying in bed and is not in acute distress. NEUROLOGICAL: Higher mental function: The patient is awake, alert, oriented to self, place and time. Patient is following commands. No aphasia and no neglect. Cranial nerves: The pupils are round, equal about 4mm bilaterally and reactive to light and accommodation. Visual bess are full to confrontation throughout. Extraocular movement is intact no nystagmus is noted. Facial sensation is normal to touch throughout. The facial strength is normal throughout. Hearing is normal bilaterally to hand rub. Tongue is midline and moved [id number] without any difficulty. No dysarthria is noted. Shoulder shrug is normal bilaterally. Motor: The strength is limited in assessment of the right lower extremity since has recent surgery for fracture of right tibia/has cast. Otheriwse 5 over 5 throughout. Normal tone and bulk. Cerebellum: Normal finger to nose bilaterally. Sensation: Sensation is limited in right lower but otherwise normal to touch throughout. Reflexes (right/left): Biceps 2+; triceps2+; brachioradialis; 2+ patellar; left is 2+ but unable to examine right , ankles 2+ left but unable to examine right.. Plantars is downgoing on the left and unable to examine right. Some other workup during his hospital visit consisted of: TSH is 1.540. ESR 41 CT of the head was reported as no acute intracranial process. I personally reviewed the CT and agree with report. CT angiography of the head and neck is reported as symmetric appearance of the orbits and globes. Slight asymmetric decreased right superior orbital vein contrast compared to the left. Consider outpatient MRI for further evaluation. No evidence of dissection of the cervical internal carotid artery or vertebral artery or any evidence of significant stenosis at the carotid bifurcation. No evidence of intracranial high-grade stenosis or intracranial aneurysm. Right thyroid gland nodule measuring 8 mm. MRI of the brain and orbit with and without is reported as supraorbital vein are patent bilaterally. No evidence of intraorbital mass or significant abnormality. No evidence of intracranial mass nor acute/subacute CVA accident. I personally reviewed the MRI of the orbit in the brain and I feel that it's unremarkable. - Labs CBC & Chem 7: 06/20/23 05:28 06/20/23 05:28 Labs: Abnormal Lab Results - Last 24 Hours (Table) 06/19/23 06/20/23 06/20/23 Range/Units 16:31 05:28 05:28 RBC 3.60 L (4.10-5.20) X 10*6/uL Hgb 10.9 L (12.0-15.0) d/dL Hct 33.8 L (37.2-46.3) % MPV 8.9 L (9.5-12.2) FL Eosinophils # 0.50 H (0.04-0.35) X 10*3/uL ESR 41 H (0-20) mm/hr Total Protein 6.1 L (6.2-8.2) d/dL Assessment and Plan Assessment: This is a 27-year-old woman who had a fall at work due to her coworker and herself legs being tangle together but denies any head trauma or LOC on 06/15/2023. She has right tibia fracture s/o closed reduction on 06/16/2023. But on 06/17/2023 nurse noticed large anisocoria on the right eye and sluggishly reactive to light but felt improving today. Patient is using a different inhaler for her asthma. Anisocoria of right eye and is reactive to light but otherwise no other neurological issues: Resolved after she stopped her Asthma medication which seems the culprit. MRI of the brain and orbit is negative. CTA is negative for any aneurysm. Patient denies of headache, visual disturbance and no focality on examination beside anisocoria. Plan: Ophthalmology team evaluated her and felt no difference between eyes and felt possible medication effect (Asthma med). I evaluated the patient today and her pupils are equal. Recommend patient to follow-up with Ophthamologist as outpatient as patricia wharton. Her slight elevated ESR could be due to her recent surgery. She does not have any focal deficits. If possible to change the inhaler medication and the patient was notified to avoid any spray that goes to her eyes. Defer the rest of management to the primary and another specialist. The plan was discussed with the patient and her nurse. Otherwise no additional neurological work-up. Will sign off. Please reconsult if needed. Time with Patient: Less than 30
--- NOTE | 2023-06-20 12:10 | P.PN ---
Subjective Progress Note Date: 06/20/23 Ivana Betancur, is a 27 -year-old female who presented to [facility] emergency room with a chief complaint of right ankle pain after sustaining a fall. She was evaluated in the emergency room vital examination on presentation revealed a temperature of 98.6 pulse 103 respiration 18 blood pressure 135/90 pulse ox 100% on room air Laboratory data revealed a white blood count of 14.4 hemoglobin 13.4 platelet count 366 Past medical history significant for history of asthma, history of ALLERGIC rhinitis, history of ADHD On review of systems patient is alert and oriented 3 in no apparent distress she is complaining of right ankle pain otherwise she denies any complaints there is no fever or chills no headache or dizziness no chest pain no shortness of breath no cough no nausea or vomiting no abdominal pain no diarrhea and no urinary symptoms. On 06/17/2023 patient is alert and oriented 3. Patient is status post surgical intervention closed reduction and intramedullary nailing of the right tibia. Current vital signs temp 98.8, heart rate 70, respiratory rate 16, blood pr essure 94/54 pulse ox of 96% on room. Patient denies chest pain or shortness breath. Patient denies nausea vomiting or diarrhea. Patient denies any urinary burning. labwork Currently pending On 06/18/2023 patient was seen and examined on the medical floor she is alert and oriented 3 in no apparent distress, yesterday she was noticed to have a dilated right pupil, computed tomography scan of the brain without contrast was done and did not reveal any acute intracranial bleeding, neurology consultation was requested, otherwise patient is doing well she denies any fever or chills no headache or dizziness no chest pain no shortness of breath no cough no nausea or vomiting no abdominal pain no diarrhea and no urinary symptoms. On 06/19/2023 patient is alert and oriented 3. Awaiting MRI results an cloth drier consult. At this time patient denies chest pain or shortness of breath. Patient denies nausea vomiting or diarrhea. Patient denies any urinary burning or frequency. current temp 98.0, heart rate 82, respiratory rate 18, blood pressure 118/74 pulse ox 95% on room air. On 06/20/2023 patient was seen and examined on the medical floor she is alert and oriented 3 in no apparent distress, there is no fever or chills no headache or dizziness no chest pain no shortness of breath no cough no nausea or vomiting no abdominal pain no diarrhea and no urinary symptoms. Different test results discussed with patient and family. Patient was cleared by neurology and ophthalmology for discharge. Incidental finding during this admission was an 8 mm thyroid nodule. This will need to be followed as outpatient with ultrasound in 3 months to assure stability. Objective - Vital Signs Vital signs: Vital Signs Temp 97.9 F 06/20/23 06:50 Pulse 84 06/20/23 06:50 Resp 16 06/20/23 06:50 BP 100/60 06/20/23 06:50 Pulse Ox 95 06/20/23 06:50 FiO2 Intake & Output 06/19/23 06/20/23 06/20/23 18:59 06:59 18:59 Other: Voiding Method Toilet # Voids 3 2 - Exam In general patient is alert and oriented x 3 in no distress HEENT head normocephalic and atraumatic Neck is supple no JVD no goiter no lymphadenopathy no carotid bruit Chest examination is clear to auscultation no crackles no wheezing Cardiac exam reveals regular heart sounds S1 and S2 no gallops no murmurs Abdomen is soft nontender no organomegaly with normal bowel sounds Extremity exam reveals no edema no cyanosis or clubbing Neurological examination reveals no gross focal deficits - Labs CBC & Chem 7: 06/20/23 05:28 06/20/23 05:28 Labs: Abnormal Lab Results - Last 24 Hours (Table) 06/19/23 06/19/23 06/19/23 Range/Units 07:06 07:06 16:31 WBC 10.94 H (4.50-10.00) X 10*3/uL RBC 3.73 L (4.10-5.20) X 10*6/uL Hgb 11.1 L (12.0-15.0) d/dL Hct 35.0 L (37.2-46.3) % MCHC 31.7 L (32.0-37.0) d/dL MPV 9.3 L (9.5-12.2) FL Monocytes # 1.06 H (0.20-1.00) X 10*3/uL Eosinophils # 0.38 H (0.04-0.35) X 10*3/uL ESR 41 H (0-20) mm/hr Glucose 105 H (74-99) mg/dL Assessment and Plan Assessment: Acute fracture of the right fibula diaphysis, with mild displacement, and acute spiral fracture of the distal right tibia with mild displacement. Status post surgical intervention on 06/16/2023 Underlying history of asthma stable at this time Underlying history of ALLERGIC rhinitis Underlying history of ADHD Anisocoria of the right eye. CT of head completed. MRI completed awaiting ophthalmology input. Neurology services are following At this time patient was seen and examined Home medications reviewed and reordered Patient was seen by orthopedic surgery and plan is for surgery today Will continue to follow during this admission for medical management
== END 2023-06-20 14:13 | disposition home or self-care (01) | DRG 494 ==
LOC: EC 14:18 → 4SSUR 17:19
PROVIDERS: ADMIT Orthopaedic Surgery; ATTEND Orthopaedic Surgery
PROC: 0QSG36Z Reposition Right Tibia with Intramedullary Internal Fixation Device, Percutaneous Approach (ICD-10-PCS; principal; 2023-06-16 10:10)
DX: S82.491A Other fracture of shaft of right fibula, initial encounter for closed fracture (principal); E04.1 Nontoxic single thyroid nodule; J45.909 Unspecified asthma, uncomplicated; S82.301A Unspecified fracture of lower end of right tibia, initial encounter for closed fracture; H57.02 Anisocoria; T50.995A Adverse effect of other drugs, medicaments and biological substances, initial encounter; H57.04 Mydriasis; F90.9 Attention-deficit hyperactivity disorder, unspecified type; W03.XXXA Other fall on same level due to collision with another person, initial encounter; Y99.0 Civilian activity done for income or pay; Z79.899 Other long term (current) drug therapy; Z97.5 Presence of (intrauterine) contraceptive device; Z91.030 Bee allergy status; Z88.8 Allergy status to other drugs, medicaments and biological substances; Z91.018 Allergy to other foods
CPT/HCPCS: 70450; 70496; 70498; 70543; 70553; 80053; 81025; 84443; 85025; 85610; 85652; 85730; 86850; 86900; 86901; 94640; 96374; 96375; 99285

== ENCOUNTER → 2023-10-16 | Outpatient (CLI) | payer OTHER ==
--- NOTE | 2023-10-16 15:08 | US ---
EXAMINATION TYPE: US thyroid st tissue head/neck DATE OF EXAM: 10/16/2023 COMPARISON:06/18/2023 CT CLINICAL INDICATION: Female, 28 years old with history of E04.1 NONTOXIC SINGLE THYROID NODULE; Nodul e seen right thyroid on CT; Family history of thyroid cancer GLAND SIZE: Right Lobe: 5.4 x 1.2 x 1.7 cm Overall Parenchyma: homogenous Left Lobe: 5.4 x 1.0 x 1.4 cm Overall Parenchyma: Homogenous Isthmus Thickness: 0.2 cm NODULES RIGHT: # of nodules measured on right: 1 1. 1.3 X 0.6 x 1.0 cm, lower medial, Prior size: no prior TIRADS Score: 0 TIRADS Category 1: Benign Composition: Cystic or almost completely cystic (0 points). Recommendation: No FNA LEFT: # of nodules measured on left: 0 ISTHMUS: # of nodules measured in the isthmus: 0 Bilateral neck scanned, ? Cystic structure right lateal neck = 2.6 x 0.9 x 1.3 cm IMPRESSION: 1. Right thyroid nodule is predominantly cystic could be followed up in one year. 2. Additional cyst with nonaggressive features lateral to the right thyroid gland. It is thought to be present on 06/18/2023 CT and is stable.
== END | disposition home or self-care (01) ==
LOC: RADUSWWP 12:06
PROVIDERS: ATTEND Family Medicine
DX: E04.1 Nontoxic single thyroid nodule (principal); Z80.8 Family history of malignant neoplasm of other organs or systems
CPT/HCPCS: 76536

== ENCOUNTER → 2024-12-06 | Outpatient (CLI) | payer OTHER ==
--- NOTE | 2024-12-06 15:33 | CT ---
EXAMINATION TYPE: CT lower extremity RT wo con DATE OF EXAM: 12/06/2024 1:40 PM COMPARISON: None. CLINICAL INDICATION: Female, 29 years old with history of S82.101A FX RIGHT FIBULA SHAFT, Hx of tib/f ib fx. 2 surgeries. Last surgery was last March. Pt c/o ongoing swelling and pain. TECHNIQUE: Contrast used: mL of , (none if empty) Oral contrast used: (none if empty) Axial images were obtained at 3 mm thick sections. Reconstructed images in the coronal and sagittal p jonathon are reviewed on the computer. FINDINGS: No acute fractures are evident. There is narrowing of the medial lateral compartment joint spaces com patible with degenerative change. There are some focal areas of lucency within the medullary metaphys is of the femur. Focal osteoporosis could be considered. Evaluate for multiple myeloma. No additional suspicious lucencies identified. Musculature signal appears normal. No joint effusion is evident. Subcutaneous tissues appear normal Medullary arthur from the tibial fracture repair is evident. Plate and screws from fibular repair is mike dent. IMPRESSION: 1. SUSPICIOUS ACUTE CHANGE IS NOT IDENTIFIED. POST TIBIAL AND FIBULAR OPEN REDUCTION INTERNAL FIXATIO N REPAIR EVIDENT. 2. THERE IS SOME FOCAL LUCENCY WITHIN THE METAPHYSIS OF THE FEMUR. FOCAL OSTEOPOROSIS IS FAVORED. COR RELATION WITH LABORATORY RESULTS FOR MULTIPLE MYELOMA IS RECOMMENDED. 3. NO SUSPICIOUS ABNORMALITY TO SUGGEST SWELLING. [facility], , 12/06/2024 3:31 PM
== END | disposition home or self-care (01) ==
LOC: RADCTMAIN 13:00
PROVIDERS: ATTEND Orthopaedic Surgery
DX: S82.101A Unspecified fracture of upper end of right tibia, initial encounter for closed fracture (principal); X58.XXXA Exposure to other specified factors, initial encounter